=== PATIENT | male | born 1940 | race Two or more races ===

== ENCOUNTER 2024-09-04 13:20 | Outpatient (AMB) | payer OTHER, SELFPAY ==
[2024-09-04 13:23] VITALS: BP 100/62; PULSE 84; O2SAT 99; BMI 23.8
--- NOTE | 2024-09-04 13:23 | MHC.OFFVIS ---
Vital Signs 09/04/24 13:23 Height 5 ft 5 in Weight 143 lb BMI 23.8 BP 100/62 Blood Pressure Location Rt brachial Position Sitting Pulse 84 Pulse Source Doppler Pulse Oximetry (%) 99 Oxygen Delivery Method Room Air Intake Visit Reasons: asthma Financial Project Manager Required: Yes Financial Project Manager Name: Francy Brennan Lamar Allergies Penicillins Allergy (Severe, Verified 09/04/24 13:31) Itchiness HPI HPI asthma: Details: 84-year-old gentleman, nonsmoker, with underlying history of what may be asthma, previously seen by [facility] Pulmonary associates, no followed by drainage inspector, recently taken off likely ?ICS/LABA secondary to ?heart condition. Patient does underlying multiple environmental allergies at worse during colder temperatures. He does have several dogs. Patient denies having recent function or allergy testing. Patient denies having recent cardiac testing. Patient denies underlying family history of pulmonary diseases. Patient has underlying history of exposure to industrial dusts for 3 decades. [facility] Social History (Updated 09/04/24 @ 13:33 by Francy Kate [facility]) Patient Tobacco Use Status: Never used Tobacco Review of Systems Const Denies daytime sleepiness, Denies excessive sweating, Denies fatigue, Denies fever(s), Denies lethargy, Denies malaise, Denies night sweats, Denies snoring and Denies weight loss Eyes Denies blurry vision and Denies itchy eyes ENT Reports nasal congestion, Reports post nasal drip, Denies sinus pain, Denies sinus pressure and Denies other ( Thrush) Card Denies chest pain, Denies pedal edema, Denies dyspnea, Denies orthopnea and Denies paroxysmal nocturnal dyspnea Resp Denies cough, Denies hemoptysis, Denies excessive phlegm production, Denies dyspnea, Denies snoring and Reports wheezing GI Denies abdominal pain and Denies heartburn Musc Denies myalgias, Denies arthralgias and Denies joint swelling Skin/Breast Denies rash Neuro Denies memory loss and Denies seizure-like activity Psych Denies abnormal sleep pattern, Denies anxiety and Denies memory loss Endo Denies excessive sweating, Denies fatigue and Denies heat intolerance Mick/Lymph Denies easy bruising Aller/Immun Denies itchy eyes, Denies seasonal rhinorrhea and Reports wheezing Physical Exam Vital Signs: Last Vital Signs Pulse 84 09/04/24 13:23 BP 100/62 09/04/24 13:23 Pulse Ox 99 09/04/24 13:23 Oxygen Delivery Method Room Air 09/04/24 13:23 BMI result Body Mass Index 23.8 Const General: no acute distress and alert Nutritional Appearance: not obese Orientation/consciousness: Other orientation findings ( oriented) HEENT Head: Yes atraumatic Eyes General: appearance normal, both eyes and all related structures Sclerae: sclerae normal EOM: EOMs intact bilaterally Neck Neck: Yes supple Lymphatic: no lymphadenopathy noted Resp Effort & Inspection: normal respiratory effort and no use of accessory muscles Auscultation: clear to auscultation bilaterally Cardio Rate: regular rate Rhythm: regular rhythm Heart sounds: no gallops, no murmurs and no rubs Skin General skin exam: other ( warm) Extrem General: No clubbing, No cyanosis and No edema Assessment & Plan Assessment & Plan (1) ILD (interstitial lung disease): Code(s): J84.9 - Interstitial pulmonary disease, unspecified Category: Medical Plan: Possible underlying ILD. Will obtain CT chest for further evaluation. (2) Asthma: Code(s): J45.909 - Unspecified asthma, uncomplicated Category: Medical Plan: Likely underlying asthma suboptimally controlled on no inhaled bronchodilators or inhaled corticosteroid therapy. Will start on empiric Breo and obtain full PFT. (3) Dyspnea on exertion: Code(s): R06.09 - Other forms of dyspnea Category: Medical Plan: Likely multifactorial. Will obtain 2D echocardiogram to evaluate possible cardiac component. (4) Environmental allergies: Code(s): Z91.09 - Other allergy status, other than to drugs and biological substances Category: Medical Plan: Will obtain IgE level, CBC with differential, and RAST panel for further evaluation. Orders: Orders PFT pulmonary function test Today J84.9 - Interstitial pulmonary disease, unspecified CT chest wo IV con Today J84.9 - Interstitial pulmonary disease, unspecified CA echo transthoracic complete Today R06.09 - Other forms of dyspnea Resp Allergy Profile Region I Today Z91.09 - Other allergy status, other than to drugs and biological substances Complete Blood Count Auto Diff Today Z91.09 - Other allergy status, other than to drugs and biological substances Medications: New fluticasone furoate-vilanterol 200-25 mcg/dose (Breo Ellipta) 1 inh inhalation DAILY 1 ea 6RF R06.09 - Other forms of dyspnea Coding Level of Care Code New Pt Level 5 (13706) Diagnoses ILD (interstitial lung disease) J84.9 Asthma J45.909 Dyspnea on exertion R06.09 Environmental allergies Z91.09
--- OUTSIDE RECORDS SUMMARY | 2024-09-04 15:53 | XMS_ITS | Encounter Summary ---
Author Organization [employer] Address [address] [place] [address] Care Team Providers Care Biology Manager Name Role Phone Eva Lee Primary Care Provider + Reason for Visit * Reason Onset Date Comments faxed form 08/21/2024 [facility] Encounter Details Date Type Department Care Team (Late st Contact Info) Description 08/21/2024 Telephone Internal Medicine - [place] [address] [facility] [address] [place] [address] Shana Puente MA faxed form ([facility] ) Social History Tobacco Use Types Packs/Day Years Used Date Smoking Tobacco: Never Smokeless Tobacco: Never Alcohol Use Standard Drinks/Week Comments No 0 (1 standard drink = 0.6 oz pur e alcohol) Housing Instability Answer Date Recorde d Are you worried that in the next 2 months you may not have stable housing? No 06/10/2024 Food Access & Nutrition Answer Date Rec orded Do you have access to a vari ety of food including fruits and vegetables? Yes 06/10/2024 Access to Healthcare Answer Date Record ed Within the last 3 months, ho w many times did you visit the emergency department for your medical care? 0 06/10/2024 Health Literacy Answer Date Recorded How often do you need to hav e someone help you when you read instructions, pamphlets, or other written material from your doctor or pharmacy? Sometimes 06/10/2024 Caregiver: How often do you need to have someone help you when you read instructions, pamphlets, or other written material from your doctor or pharmacy? Not on file 06/10/2024 Financial Risk Answer Date Recorded How hard is it for you to pa y for the very basics like food, housing, medical care, and air conditioning / heating? Not very hard 06/10/2024 Transportation Answer Date Recorded Has the lack of transportati on kept you from meetings, work, or from getting things needed for daily living? No Has the lack of transportati on kept you from medical appointments or from getting medications? No 06/10/2024 Social Isolation Answer Date Recorded How often do you feel lonely or isolated from those around you? Sometimes 06/10/2024 Food Risk Answer Date Recorded Within the past 12 months we worried whether our food would run out before we got money to buy more. Never true 06/10/2024 Within the past 12 months th e food we bought just didn't last and we didn't have money to get more. Never true 06/10/2024 Dependent Care Answer Date Recorded Do you need help finding or paying for care for your loved ones. For example, child development specialist or elderly care for an older adult? No 06/10/2024 Education Answer Date Recorded Do you think completing more education or training, like finishing a GED, going to college, or learning a trade, would be helpful for you? No 06/10/2024 Employment and Income Answer Date Recor ded During the last four weeks, have you been actively looking for work? No 06/10/2024 Living Situation Answer Date Recorded What is your living situation? 1 08/11/2023 Sex and Gender Information Value Date Recorded Sex Assigned at Not on file Legal Sex Male 5:07 AM EST Gender Identity Not on file Sexual Orientation Not on file documented as of this encounter Progress Notes * Shana Puente MA - 08/22/2024 4:08 PM EST Faxed [phone] * Shana Puente MA - 08/21/2024 3:59 PM EST [facility], Plan of Care 08/01/24 Placed in providers folder for signature. documented in this encounter Plan of Treatment Upcoming Encounters Date Type Department Care Team (Late st Contact Info) Description 09/10/2024 2:30 PM EDT Office Visit [facility] [address] [place] [address] [place] [address] Tucker Bridges MD [address] [place] [address] [address] [place] [address] 10/28/2024 10:45 AM EDT Office Visit Internal Medicine - [place] [address] [place] [phone] Eva Lee PA [address] [address] documented as of this encounter Visit Diagnoses Not on filedocumented in this encounter Care Teams Biology Manager Relationship Specialty Start Date End Date Eva Lee PA [address] [place] [address] PCP - General Internal Medicine 11/12/19 documented as of this encounter
--- OUTSIDE RECORDS SUMMARY | 2024-09-04 15:53 | XMS_ITS | Encounter Summary ---
Author Organization [facility] Address [address] [place] [address] Care Team Providers Care Light Air Defense Artillery Crewmember Name Role Phone Eva Lee Primary Care Provider + Reason for Referral * Consultation (Routine) - Pending Review Specialty Diagnoses / Procedures Referred By iLsa palomares Referred To Contact Physical Therapy Diagnoses Right ankle pain, unspecified chronicity Eva Lee PA [address] [address] Phone: tel: fax: Referral ID Status Reason Start Date Expiration Date Visits Requested Visits Authorized [id number] Pending Review Specialty Services Required 08/20/2024 08/20/2025 1 1 Reason for Visit * Reason Onset Date Blanca Velasquez - Referral 08/12/2024 Encounter Details Date Type Department Care Team ([facility] Contact Info) Description 08/12/2024 Telephone Internal Medicine - [place] [address] [address] Eva Lee PA [address] [place] [address] Eva - Referral Social History Tobacco Use Types Packs/Day Years [...] for your loved ones. For example, child psychometrist or elderly care for an older adult? [...] as of this encounter Progress Notes * EMMETT Kenyon - 08/20/2024 4:18 PM EST Obtained and reviewed [facility] ER report from 06/22/2024. He was seen there after having a fall 2 days prior on 06/20/2024 with complaints of right ankle pain and found to have fracture distal fibulaas well as concussion because he also hit his head. Looks like he had follow-up x-rays 07/09/2024 andthen last one was 07/24/[address] [place] and revealed unchanged lateral malleoli are fracture. Seems he was treated with a boot and now wants to go to physical therapy which I placed referral he just needs to call upstairs and make the appointment if you could give him the number. Thank you. * Nicolasa Wilson MA - 08/20/2024 4:11 PM EST Looking for a referral to physical therapy. Checked on [facility] and pt had a fracture of the right ankle from a fall on 06/20. Printed ER note, and Xray note placed on your desk for review. * EMMETT Kenyon - 08/12/2024 10:52 AM EST Please clarify message. Are they looking for physical therapy referral? Also it says ankle fractureon the right? I was not aware of this can you please further detail. Thank you. * Nicolasa Wilson MA - 08/12/2024 10:46 AM EST Please advise referral request * Smiley Coates - 08/12/2024 10:00 AM EST Referral Request: What insurance does the patient have today? [employer] medicare adv [id number] Referrals cannot be processed if the insurance is not accurate. If the insurance listed above in red is NO BILLING INFORMATION FOUND FOR THIS ENCOUNTER The patients correct insurance must be obtained and registered in [facility] or their referral can not be processed. Is this a retro request? yes. If yes for what date of service do you need the retro referral? 07/31/34 Who is calling to request this referral? Faxed request If the caller is not the patient, what is their name? Specialist's office Ask the patient WHO referred them to this specialty: Patient self referred FIRST and LAST NAME of SPECIALIST PATIENT is seeing: [facility] #[id number] What specialty is this? Physical Therapy DIAGNOSIS Patient is being seen for (Not a body part or a procedure): right ankle fracture Have you seen this SPECIALIST for this PROBLEM/DX before? If YES, when? No Have you checked REVIEW or the APPT DESK to see if this referral has already been done or has visits left? yes Is this visit: Initial Visit, 12 visits Address of Specialist: [address] [facility] [address] Phone # of Specialist: [phone] Fax #: (if applicable): [phone] Does patient have an appointment scheduled?: yes Date of appointment- (including a retro-request): 07/31/24 Is this appointment related to: Not MVA, worker compensation, or surgery related documented in this encounter Plan of Treatment Upcoming Encounters Date Type Department Care Team (Late st Contact Info) Description 09/10/2024 2:30 PM EDT Office Visit [facility] [address] [facility] [address] [place] [address] Tucker Bridges MD [address] [place] [address] [address] [place] [address] 10/28/2024 10:45 AM EDT Office Visit Internal Medicine - [place] [address] [place] [address] Eva Lee PA [address] [facility] [address] [place] [address] Scheduled Referrals Name Type Priority Associated Diagnoses Order Schedule Ambulatory referral to Physical Therapy and Athletic Training Outpatient Referral Routine Right ankle pain, unspecified chronicity 1 Occurrences starting 08/20/2024 until 08/20/2025 documented as of this encounter Visit Diagnoses Diagnosis Right ankle pain, unspecified chronicity- Primary documented in this encounter Care Teams [employer] Crewmember Relationship Specialty Start Date End Date Eva Lee PA [address] [facility] [address] [place] [address] PCP - General Internal Medicine 11/12/19 documented as of this encounter
--- OUTSIDE RECORDS SUMMARY | 2024-09-04 15:53 | XMS_ITS | Encounter Summary ---
Author Organization [facility] Address [address] [place] [address] Care Team Providers Care Fast Food Worker Name Role Phone Eva Lee Primary Care Provider + Encounter Details Date Type Department Care Team (Late st Contact Info) Description 09/04/2024 Telephone Internal Medicine - [place] [address] [facility] [address] [place] [phone] Eva Lee PA [address] [facility] [address] [place] [address] Social History Tobacco Use Types Packs/Day Years [...] care for your loved ones. For example, children's counselor or elderly care for an older adult? [...] as of this encounter Progress Notes * Myesha Britt - 09/04/2024 10:05 AM EST [facility] is calling to check if we received a faxed insurance referral to our office that was faxed on 08/30? Seeing Tucker Aviles npi# [id number] On 09/10/24 at 2:30pm [address], [place] [address], [place] [address] documented in this encounter Plan of Treatment Upcoming Encounters Date Type Department Care Team (Late st Contact Info) Description 09/10/2024 2:30 PM EDT Office Visit [facility] [address] [place] [address] [place] [address] Stefan-Tucker Alvarez MD [address] [place] [address] [address] [place] [address] 10/28/2024 10:45 AM EDT Office Visit Internal Medicine - [place] [address] [place] [address] Eva Lee PA [address] [place] [address] documented as of this encounter Visit Diagnoses Not on filedocumented in this encounter Care Teams Fast Food Worker Relationship Specialty Start Date End Date Eva Lee PA [address] [place] [address] PCP - General Internal Medicine 11/12/19 documented as of this encounter
--- OUTSIDE RECORDS SUMMARY | 2024-09-04 15:53 | XMS_ITS | Encounter Summary ---
Author Organization [facility] Address [address] [place] [address] Care Team Providers Care Air Crew Member Name Role Phone Eva Lee Primary Care Provider + Reason for Visit * Reason Onset Date Comments Eva: April 08/02/2024 Encounter Details Date Type Department Care Team ([facility] st Contact Info) Description 08/02/2024 Telephone Internal Medicine - [place] [address] [facility] [address] [place] [phone] Eva Lee PA [address] [facility] [address] [place] [address] Eva: Echo Social History Tobacco Use Types Packs/Day Years [...] care for your loved ones. For example, early childhood or elderly care for an older adult? [...] as of this encounter Progress Notes * Kaila Maldonado MA - 08/06/2024 8:57 AM EST faxed * EMMETT Kenyon - 08/05/2024 4:03 PM EST Echo was ordered by his racing mechanic and done 03/11/2024. Please fax results to clinical nursing assistant they are in the chart under cardiovascular. Thank you. * Kim Moon - 08/02/2024 1:33 PM EST [facility] pulmonology called and requested the results of the echocardiogram that was ordered by the patients PCP. documented in this encounter Plan of Treatment Upcoming Encounters Date Type Department Care Team (Late st Contact Info) Description 09/10/2024 2:30 PM EDT Office Visit [facility] Cardiology [facility] [address] [place] [address] [address] [place] [address] Tucker Bridges MD [address] [place] [address] [address] [place] [address] 10/28/2024 10:45 AM EDT Office Visit Internal Medicine - [place] [address] [place] [address] Eva Lee PA [address] [place] [address] documented as of this encounter Visit Diagnoses Not on filedocumented in this encounter Care Teams Air Crew Member Relationship Specialty Start Date End Date Eva Lee PA [address] [address] PCP - General Internal Medicine 11/12/19 documented as of this encounter
--- OUTSIDE RECORDS SUMMARY | 2024-09-04 15:53 | XMS_ITS | Clinical Summary ---
Author Organization [address] [place] [address] [place] [phone] Phone Care Team Providers Care It Infrastructure Project Manager Name Role Phone Eva Lee Primary Care Provider + Allergies Active Allergy Reactions Criticality Noted Date Comments Penicillins Swelling 06/11/2024 Medications sacubitriL-valsa rtan (Entresto) 24-26 mg per tablet TAKE 1 TABLET BY MOUTH TWICE DAILY 180 tablet 1 08/05/2024 Active Encounters Date Type Department Care Team Description 09/04/[address] [facility] [address] [address] Eva Lee PA 08/21/[address] [phone] Shana Puente [place] faxed form ([facility] ) 08/12/2024 Telephone Internal [address] [phone] Eva Lee PA Melonie - Referral 08/02/2024 Telephone Internal Medicine [facility] [address] [phone] Eva Lee PA Melonie: Echo 06/11/2024 10:40 AM EST - 06/11/2024 11:59 PM EST Hospital Encounter [facility] XRAY - [place] [address] [place] [phone] Acute cough Discharge Disposition: Home or Self Care 06/11/2024 10:00 AM EST Office Visit Walk-In Clinic [facility] [address] [place] [address] Zion Garcia PA Pneumonia of both lower lobes due to infectious organism (Primary Dx) from Last 3 Months Medical History Medical History Date Comments Allergic rhinitis 01/11/2018 DX:Allergic rh initis Asthma 09/06/2017 DX:Asthma Atrial fibrillation (CMS/HCC) 03/28/2018 DX :Atrial fibrillation (HCC); COMMENT: On anticoagulation BPH (benign prostatic hyperplasia) 01/11/2018 DX:BPH (benign prostatic hyperplasia) Diverticulosis 12/30/2016 DX:Diverticulosi s Hyperlipidemia 01/11/2018 DX:Hyperlipidemi a Tubular adenoma of colon 01/11/2018 DX:Tubu lar adenoma of colon Vitamin D deficiency 05/18/2015 DX:Vitamin D deficiency Family History Relation Name Status Comments Father Mother Social History Tobacco Use Types Packs/Day Years [...] for your loved ones. For example, child care leader or elderly care for an older adult? [...] on file Sexual Orientation Not on file Obstetrics History Last Filed Vital Signs Vital Sign Reading Time Taken Comments Blood Pressure 106/63 06/11/2024 10:11 AM EST Pulse 78 06/11/2024 10:11 AM EST Temperature 36.3 ??C (97.3 ??F) 06/11/2024 10:[address] Respiratory Rate - - Oxygen Saturation 98% 06/11/2024 10:11 AM EST Inhaled Oxygen Concentration - - Weight 63.8 kg (140 lb 9.6 oz) 05/01/2024 11:19 AM EDT Height 165.1 cm (5' 5 ) 05/01/2024 11:19 AM EDT Body Mass Index 23.4 05/01/2024 11:19 AM EDT Plan of Treatment Upcoming Encounters Date Type Department Care Team (Late st Contact Info) Description 09/10/2024 2:30 PM EDT Office Visit [facility] Cardiology [facility] [address] [place] [address] [address] [place] [address] Tucker Bridges MD [address] [place] [address] Dr Emmanuel [address] [place] [address] 10/28/2024 10:45 AM EDT Office Visit Internal Medicine - [place] [address] [place] [address] Eva Lee PA [address] Emmanuel [address] [place] [address] Health Maintenance Due Date Last Done Comments DTaP,Tdap,and Td Vaccines (1 - Tdap) 1958 Zoster Vaccines (1 of 2) 1989 RSV Immunization Patients 60 + Years Old (1 - 1-dose 75+ series) 2014 Pneumococcal Vaccine: 50+ Ye ars (2 of 2 - PPSV23) 06/01/2016 04/06/2016 Cholesterol Screening (Lipid Panel) 06/05/2022 Depression Screening 06/05/2022 Falls Risk Assessment 06/05/2022 Medicare Annual Wellness Visit 06/05/2022 COVID-19 Vaccine (1 - 2023-2 5 season) 2024 Influenza Vaccine (#1) 2024 Hypertension/CHF/CAD Annual BMP Blood Test 11/27/2024 11/28/2023 Social Influencers of Health Screening 06/10/2025 06/10/2024 HIB Vaccines Aged Out No longer eligi ble based on patient's age to complete this topic HPV Vaccines Aged Out No longer eligi ble based on patient's age to complete this topic Hepatitis A Vaccines Aged Out No long er eligible based on patient's age to complete this topic Hepatitis B Vaccines Aged Out No long er eligible based on patient's age to complete this topic IPV Vaccines Aged Out No longer eligi ble based on patient's age to complete this topic MMR Vaccines Aged Out No longer eligi ble based on patient's age to complete this topic Meningococcal ACWY Vaccine Aged Out N o longer eligible based on patient's age to complete this topic Meningococcal B Vacine Aged Out No lo nger eligible based on patient's age to complete this topic RSV Immunization Patients Un puja 20 months Aged Out No longer eligible b ased on patient's age to complete this topic Varicella Vaccines Aged Out No longer eligible based on patient's age to complete this topic Procedures Procedure Name Priority Date/Time Associated Diagnosis Comments POC RAPID [id number], MOLECULAR Routine 06/11/2024 11:18 AM EST Pneumonia of both lower lobes due to infectious organism XR CHEST 2 VIEWS STAT 06/11/2024 10:4 9 AM EST Acute cough from Last 3 Months Results * Poc Rapid [id number], MOLECULAR (06/11/2024 11:18 AM EST) COVID-19/SARS- COV-2 Rapid POC Negative Negative Swab Nasopharyngeal structure / Unknown 06/11/2024 11:18 AM EST [facility] POINT OF CARE TEST ENTER/E DIT ORDERABLES Final Result * XR Chest 2 Views (06/11/2024 10:49 AM EST) Anatomical Region Laterality Modality Body Radiographic Eugenia ging 06/11/2024 11:5 3 AM EST Impressions 06/11/2024 11:58 AM EST Probable small bilateral lower lung infiltrates. POS - [id number] -------- FINAL REPORT -------- Dictated By: Dottie Zavala Dictated Date: 06/11/2024 11:53 ET Assigned Physician: Dottie Zavala Reviewed and Electronically Signed By: Dottie Zavala Signed Date: 06/11/2024 11:58 ET Workstation ID: [id number] Transcribed By: Self Edit Transcribed Date: 06/11/2024 11:53 ET Narrative 06/11/2024 11:58 AM EST EXAM: Chest x-ray HISTORY: ??Productive cough for one week. COMPARISON: 03/29/2023 FINDINGS: PA and lateral views of the chest were performed. ?? Small patchy opacities in the medial lower lungs. ??Stable minimal linear scarring in the lateral left lower lung. ??No pleural effusions or evidence of pulmonary edema. Stable mild cardiomegaly. ??Mediastinal contours are unchanged. ??Multilevel degenerative changes in the spine. Procedure Note Dottie Zavala MD - 06/11/2024 EXAM: Chest x-ray HISTORY: Productive cough for one week. COMPARISON: 03/29/2023 FINDINGS: PA and lateral views of the chest were performed. Small patchy opacities in the medial lower lungs. Stable minimal linearscarring in the lateral left lower lung. No pleural effusions or evidenceof pulmonary edema. Stable mild cardiomegaly. Mediastinal contours areunchanged. Multilevel degenerative changes in the spine. IMPRESSION: Probable small bilateral lower lung infiltrates. POS - [id number] -------- FINAL REPORT -------- Dictated By: Dottie Zavala Dictated Date: 06/11/2024 11:53 ET Assigned Physician: Dottie Zavala Reviewed and Electronically Signed By: Dottie Zavala Signed Date: 06/11/2024 11:58 ET Workstation ID: [id number] Transcribed By: Self Edit Transcribed Date: 06/11/2024 11:53 ET us [facility] IMG XR PROCEDURES Final Re sult from Last 3 Months Insurance [employer] Advance Directives Documents on File Type Date Recorded Patient Sales Research Analyst Expl anation DNR (Do Not Resuscitate) 05/07/2024 2:54 PM [facility] Care Teams It Infrastructure Project Manager Relationship Specialty Start Date End Date Eva Lee PA [address] [place] [address] PCP - General Internal Medicine 11/12/19
== END 2024-09-04 14:04 | disposition home or self-care (01) ==
PROVIDERS: PCP Physician Assistant; Visit Provider Internal Medicine Pulmonary Disease
DX: J45.909 Unspecified asthma, uncomplicated (principal); J84.9 Interstitial pulmonary disease, unspecified
CPT/HCPCS: 94060; 94727; 94729; 99204

== ENCOUNTER 2024-09-04 14:09 | Outpatient (REF) | payer OTHER, SELFPAY ==
--- NOTE | 2024-09-04 14:44 | PFT_ITS ---
Indication: Asthma Spirometry [FEV1 to FVC 65%; FEV1 1.49 L; FVC 3.3 L. bronchodilators were not given.] Lung Volumes [The patient was able to perform the maneuvers after multiple attempts] Diffusion Capacity [DLCO 75% predicted] Comparisons [None] Interpretation [There is an obstructive ventilatory defect consistent with a moderate obstruction. However, since the patient did have received bronchodilators we do not know if this is a reversible obstruction. The patient was unable to complete lung volumes. There is a mild diffusion impairment. Clinical correlation warranted.] MTDD
[2024-09-04 14:49] LABS: MANUAL DIFF FLAG NO
[2024-09-04 15:58] LABS: Basophils Percent Auto 0.8 % (0-2); Eosinophils Absolute Auto 0.1 X10*3/uL (0.0-0.4); Eosinophils Percent Auto 1.5 % (0-4); Hematocrit 42.7 % (42.0-52.0); Hemoglobin 14.6 g/dl (14.0-18.0); Imm Gran Abs Auto 0.01 X10*3/uL (0.00-0.03); Imm Gran Pct Auto 0.2 % (0.0-0.4); Lymphocytes Absolute Auto 1.3 X10*3/uL (1.2-4.9); Lymphocytes Percent Auto 27.5 % (20-40); Mean Corpuscular HGB Conc 34.2 g/dl (31.0-36.0); Mean Corpuscular Volume 99.5 fL (80.0-98.0); Mean Platelet Volume 10.6 fL (9.4-12.4); Monocytes Absolute Auto 0.5 X10*3/uL (0.1-1.2); Monocytes Percent Auto 10.5 % (2-11); Neutrophils Absolute Auto 2.8 x10*3/uL (2.0-8.3); Neutrophils Percent Auto 59.5 % (45-73); Platelet Count 163 X10*3/uL (160-400); Red Blood Count 4.29 X10*6/uL (4.60-5.80); White Blood Count 4.8 X10*3/uL (4.8-10.8)
--- OUTSIDE RECORDS SUMMARY | 2024-09-04 17:08 | XMS_ITS | Encounter Summary ---
Author Organization [employer] Address [address] [place] [address] Care Team Providers Care Educational Institution President Name Role Phone Eva Lee Primary Care Provider + Encounter Details Date Type Department Care Team (Late st Contact Info) Description 09/04/2024 Telephone Internal Medicine - [place] 175 [facility] [address] [place] [phone] Eva Lee PA 175 [facility] [address] [place] [address] Social History Tobacco Use Types Packs/Day Years [...] for your loved ones. For example, children's court magistrate or elderly care for an older adult? [...] faxed on 08/30? Seeing Tucker Aviles npi# [id number] On 09/10/24 at 2:30pm [address], [place] [address], [place] [address] documented in this encounter Plan of Treatment Upcoming Encounters Date Type Department Care Team (Late st Contact Info) Description 09/10/2024 2:30 PM EDT Office Visit [facility] [address] [place] [address] [place] [address] Stefan-Tucker Alvarez MD [address] [place] [address] Dr [address] [place] [address] 10/28/2024 10:45 AM EDT Office Visit Internal Medicine - [place] [address] [place] [address] Eva Lee PA [address] [place] [address] documented as of this encounter Visit Diagnoses Not on filedocumented in this encounter Care Teams Educational Institution President Relationship Specialty Start Date End Date Eva Lee PA [address] [place] [address] PCP - General Internal Medicine 11/12/19 documented as of this encounter
--- OUTSIDE RECORDS SUMMARY | 2024-09-04 17:08 | XMS_ITS | Encounter Summary ---
Author Organization [employer] Address [address] [place] [address] Care Team Providers Care Experimental Preflight Mechanic Name Role Phone Eva Lee Primary Care Provider + Reason for Visit * Reason Onset Date Comments faxed form 08/21/2024 [facility] Encounter Details Date Type Department Care Team (Late st Contact Info) Description 08/21/2024 Telephone Internal Medicine - [place] 175 [facility] [address] [place] [address] Shana Puente [place] faxed form [...] for your loved ones. For example, child support investigator or elderly care for an older adult? [...] [place] - 08/22/2024 4:08 PM EST Faxed [phone] * Shana Puente MA - 08/21/2024 3:59 PM EST [facility], Plan of Care 08/01/24 Placed in providers folder for signature. documented in this encounter Plan of Treatment Upcoming Encounters Date Type Department Care Team (Late st Contact Info) Description 09/10/2024 2:30 PM EDT Office Visit [facility] - [facility] [address] [place] [address] [place] [address] Tucker Bridges MD [address] [place] [address] Dr Benitez [address] [place] [address] 10/28/2024 10:45 AM EDT Office Visit Internal Medicine - [place] [address] [place] [phone] Eva Lee PA [address] [address] documented as of this encounter Visit Diagnoses Not on filedocumented in this encounter Care Teams Experimental Preflight Mechanic Relationship Specialty Start Date End Date Eva Lee PA [address] [place] [address] PCP - General Internal Medicine 11/12/19 documented as of this encounter
--- OUTSIDE RECORDS SUMMARY | 2024-09-04 17:08 | XMS_ITS | Clinical Summary ---
Author Organization [address] [place] [address] [place] [phone] Phone Care Team Providers Care Helicopter Repairer Name Role Phone Eva Lee Primary Care Provider + Allergies Active Allergy Reactions Criticality Noted Date Comments Penicillins Swelling 06/11/2024 Medications sacubitriL-valsa rtan (Entresto) 24-26 mg per tablet TAKE 1 TABLET BY MOUTH TWICE DAILY 180 tablet 1 08/05/2024 Active Encounters Date Type Department Care Team Description 09/04/2024 Telephone Internal [facility] [address] [address] Eva Lee PA 08/21/[address] [phone] Shana Puente [place] faxed form ([facility] ) 08/12/2024 Telephone Internal [address] [phone] Eva Lee PA Melonie - Referral 08/02/2024 Telephone Internal Medicine [facility] [address] [phone] Eva Lee PA Melonie: Echo 06/11/2024 10:40 AM EST - 06/11/2024 11:59 PM EST Hospital Encounter Walk-In Clinic XRAY - [place] [address] [place] [phone] Acute cough Discharge Disposition: Home or Self Care 06/11/2024 10:00 AM EST Office Visit Walk-In Clinic [facility] [address] [place] [address] Zion Garcia PA Pneumonia of [...] your loved ones. For example, child development associate teacher or elderly care for an older adult? [...] Description 09/10/2024 2:30 PM EDT Office Visit [facility] Cardiology [facility] [address] [place] [address] Dr [address] [place] [address] Tucker Bridges MD [address] [place] [address] Dr Emmanuel [address] [place] [address] 10/28/2024 10:45 AM EDT Office Visit Internal Medicine - [place] [address] [place] [address] Eva Lee PA [address] [place] [address] Health Maintenance Due Date Last Done Comments [...] Priority Date/Time Associated Diagnosis Comments POC RAPID [id number], MOLECULAR Routine 06/11/2024 11:18 AM EST Pneumonia of both lower lobes due to infectious organism XR CHEST 2 VIEWS STAT 06/11/2024 10:4 9 AM EST Acute cough from Last 3 Months Results * Poc Rapid [id number], MOLECULAR (06/11/2024 11:18 AM EST) COVID-19/SARS- COV-2 [...] small bilateral lower lung infiltrates. POS - [id number] -------- FINAL REPORT -------- Dictated By: Dottie Zavala Dictated Date: 06/11/2024 11:53 ET Assigned Physician: Dottie Zavala Reviewed and Electronically Signed By: Dottie Zavala Signed Date: 06/11/2024 11:58 ET Workstation ID: [id number] Transcribed By: Self Edit Transcribed Date: 06/11/2024 [...] small bilateral lower lung infiltrates. POS - [id number] -------- FINAL REPORT -------- Dictated By: Dottie Zavala Dictated Date: 06/11/2024 11:53 ET Assigned Physician: Dottie Zavala Reviewed and Electronically Signed By: Dottie Zavala Signed Date: 06/11/2024 11:58 ET Workstation ID: [id number] Transcribed By: Self Edit Transcribed Date: 06/11/2024 11:53 ET us [facility] IMG XR PROCEDURES Final Re sult from Last 3 Months Insurance [employer] Advance Directives Documents on File Type Date Recorded Patient Non Destructive Tester Expl anation DNR (Do Not Resuscitate) 05/07/2024 2:54 PM [facility] Care Teams Helicopter Repairer Relationship Specialty Start Date End Date Eva Lee PA [address] [place] [address] PCP - General Internal Medicine 11/12/19
--- OUTSIDE RECORDS SUMMARY | 2024-09-04 17:08 | XMS_ITS | Encounter Summary ---
Author Organization [employer] Address [address] [place] [address] Care Team Providers Care Commercial Loan Collection Officer Name Role Phone Eva Lee Primary Care Provider + Reason for Visit * Reason Onset Date Comments Eva: April 08/02/2024 Encounter Details Date Type Department Care Team ([facility] st Contact Info) Description 08/02/2024 Telephone Internal Medicine - [place] 175 [facility] [address] [place] [phone] Eva Lee PA 175 [facility] [address] [place] [address] Eva: Echo Social History Tobacco Use Types [...] care for your loved ones. For example, teacher early childhood development or elderly care for an older adult? [...] PM EST Echo was ordered by his cnc machinist and done 03/11/2024. Please fax results to display maker they are in the chart under cardiovascular. Thank you. * Kim Moon - 08/02/2024 1:33 PM EST [facility] pulmonology called and requested the results of the echocardiogram that was ordered by the patients PCP. documented in this encounter Plan of Treatment Upcoming Encounters Date Type Department Care Team (Late st Contact Info) Description 09/10/2024 2:30 PM EDT Office Visit [facility] Cardiology [facility] [address] [place] [address] Dr Edgar [address] [place] [address] Tucker Bridges MD [address] [place] [address] Dr Benitez [address] [place] [address] 10/28/2024 10:45 AM EDT Office Visit Internal Medicine - [place] [address] [place] [address] Eva Lee PA [address] [place] [address] documented as of this encounter Visit Diagnoses Not on filedocumented in this encounter Care Teams Commercial Loan Collection Officer Relationship Specialty Start Date End Date Eva Lee PA [address] [address] PCP - General Internal Medicine 11/12/19 documented as of this encounter
--- OUTSIDE RECORDS SUMMARY | 2024-09-04 17:08 | XMS_ITS | Encounter Summary ---
Author Organization [facility] Address [address] [place] [address] Care Team Providers Care Plasma Processing Centrifuge Operator Name Role Phone Eva Lee Primary Care Provider + Reason for Referral * Consultation (Routine) - Pending Review Specialty Diagnoses / Procedures Referred By Lisa palomares Referred To Contact Physical Therapy Diagnoses Right ankle pain, unspecified chronicity Eva Lee PA [address] [address] Phone: tel: fax: Referral ID Status Reason Start Date Expiration Date Visits Requested Visits Authorized [id number] Pending Review Specialty Services Required 08/20/2024 08/20/2025 1 1 Reason for Visit * Reason Onset Date Blanca Velasquez - Referral 08/12/2024 Encounter Details Date Type Department Care Team ([facility] Contact Info) Description 08/12/2024 Telephone Internal Medicine - [place] [address] [address] Eva Lee PA [address] [place] [address] Eva - Referral Social History Tobacco Use [...] for your loved ones. For example, child advocate or elderly care for an older adult? [...] 08/20/2024 4:18 PM EST Obtained and reviewed [facility] ER report from 06/22/2024. He was [...] the patient have today? [employer] medic[employer] adv [id number] Referrals cannot be processed if the insurance is not accurate. If the insurance listed above in red is NO BILLING INFORMATION FOUND FOR THIS ENCOUNTER The patients correct insurance must be obtained and registered in [facility] or their referral can not be processed. [...] NAME of SPECIALIST PATIENT is seeing: [facility] #[id number] What specialty is this? Physical Therapy DIAGNOSIS [...] visits Address of Specialist: [address] [facility] [address] Phone # of Specialist: [phone] Fax #: (if applicable): [phone] Does patient have an appointment scheduled?: yes Date of appointment- (including a retro-request): 07/31/24 Is this appointment related to: Not MVA, worker compensation, or surgery related documented in this encounter Plan of Treatment Upcoming Encounters Date Type Department Care Team (Late st Contact Info) Description 09/10/2024 2:30 PM EDT Office Visit [facility] [address] [place] [address] Tucker Bridges MD [address] [place] [address] Dr [address] [place] [address] 10/28/2024 10:45 AM EDT Office Visit Internal Medicine - [place] [address] [place] [address] Eva Lee PA [facility] [address] [place] [address] Scheduled Referrals Name Type Priority Associated Diagnoses Order Schedule Ambulatory referral to Physical Therapy and Athletic Training Outpatient Referral Routine Right ankle pain, unspecified chronicity 1 Occurrences starting 08/20/2024 until 08/20/2025 documented as of this encounter Visit Diagnoses Diagnosis Right ankle pain, unspecified chronicity- Primary documented in this encounter Care Teams Plasma Processing Centrifuge Operator Relationship Specialty Start Date End Date Eva Lee PA [address] [facility] [address] [place] [address] PCP - General Internal Medicine 11/12/19 documented as of this encounter
[2024-09-06 04:54] LABS: Class Alternaria alternata 0; Class Aspergillus fumigatus 0; Class Bermuda Grass 0; Class Birch 0; Class Cat Dander 0; Class Cladosporium herbarum 0; Class Cockroach 0; Class Common Ragweed 0; Class Cottonwood 0; Class Derm. pterony 0; Class Dermatophagoides farinae 0; Class Dog Dander 0; Class Elm 0; Class Maple Box Elder 0; Class Mountain Cedar 0; Class Mouse Urine Protein 0; Class Mugwort 0; Class Oak 0; Class Penicillium crysogenum 0; Class Rough Pigweed 0; Class Sheep Sorrel 0; Class Sycamore 0; Class Timothy Grass 0; Class Walnut Tree 0; Class White Ash 0; Class White Mulberry 0; D001 IgE D pteronyssinus <0.10 kU/L; D002 - IgE D farinae <0.10 kU/L; E001 - IgE Cat Dander <0.10 kU/L; E005 - IgE Dog Dander <0.10 kU/L; E072-IgE Mouse Urine <0.10 kU/L; G002 IgE Bermuda Grass <0.10 kU/L; G006 - IgE Timothy Grass <0.10 kU/L; I006-IgE Cockroach, German <0.10 kU/L; Immunoglobulin E 123 kU/L (<OR=114); M001 IgE Penicillium chrysogen <0.10 kU/L; M002 - IgE Cladosporium herbar <0.10 kU/L; M003 - IgE Aspergillus fumigat <0.10 kU/L; M006 - IgE Alternaria alternat <0.10 kU/L; T001 IgE Maple/Box Elder <0.10 kU/L; T003 IgE Common Silver Birch <0.10 kU/L; T006 - IgE Cedar, Mountain <0.10 kU/L; T007 - IgE Oak, White <0.10 kU/L; T008 IgE Elm, American <0.10 kU/L; T010 - IgE Walnut <0.10 kU/L; T011 - IgE Maple Leaf Sycamore <0.10 kU/L; T014 - IgE Cottonwood <0.10 kU/L; T015 - IgE Ash, White <0.10 kU/L; T070 - IgE White Mulberry <0.10 kU/L; W001 - IgE Ragweed, Short <0.10 kU/L; W006 - IgE Mugwort <0.10 kU/L; W014 IgE Pigweed, Common <0.10 kU/L; W018 IgE Sheep Sorrel <0.10 kU/L
== END 2024-09-04 14:10 | disposition home or self-care (01) ==
LOC: HO.RESP 14:09
PROVIDERS: PCP Physician Assistant; Visit Provider Internal Medicine Pulmonary Disease
DX: J84.9 Interstitial pulmonary disease, unspecified (principal); Z91.09 Other allergy status, other than to drugs and biological substances
CPT/HCPCS: 36415; 82785; 85025; 86003; 94010; 94729

== ENCOUNTER 2024-10-09 10:47 | Outpatient (AMB) | payer OTHER, SELFPAY ==
--- NOTE | 2024-10-09 10:50 | A.OFFVIS_ITS ---
Vital Signs 10/09/24 10:54 Height 5 ft 5 in Weight 145 lb BMI 24.1 BP 98/60 Blood Pressure Location Rt brachial Position Sitting Pulse 85 Pulse Source Doppler Pulse Oximetry (%) 99 Oxygen Delivery Method Room Air Intake Visit Reasons: Asthma Allergies Penicillins Allergy (Severe, Verified 10/09/24 11:00) Itchiness HPI HPI Asthma: Details: 84-year-old gentleman, nonsmoker, with underlying history of what may be asthma, previously seen by [facility] associates, no followed by queen producer, recently taken off likely ?ICS/LABA secondary to ?heart condition. Patient does underlying multiple environmental allergies at worse during colder temperatures. He does have several dogs. Patient denies having recent function or allergy testing. Patient denies having recent cardiac testing. Patient denies underlying family history of pulmonary diseases. Patient has underlying history of exposure to industrial dusts for 3 decades. After the last office visit patient has completed his laboratory studies that did not show significant allergic component to his symptoms. He attempted pulmonary function test, however was not able to follows directions. His CT chest and 2D echocardiogram are pending. Patient was unable to receive his Breo yet. He also complains of postnasal drip today. [facility] Social History (Updated 09/04/24 @ 13:33 by Francy Kate Yovany) Patient Tobacco Use Status: Never used Tobacco Review of Systems Const Denies daytime sleepiness, Denies excessive sweating, Denies fatigue, Denies fever(s), Denies lethargy, Denies malaise, Denies night sweats, Denies snoring and Denies weight loss Eyes Denies blurry vision and Denies itchy eyes ENT Denies nasal congestion, Reports post nasal drip, Denies sinus pain, Denies sinus pressure and Denies other ( Thrush) Card Denies chest pain, Denies pedal edema, Denies dyspnea, Reports dyspnea on exertion, Denies orthopnea and Denies paroxysmal nocturnal dyspnea Resp Denies cough, Denies hemoptysis, Denies excessive phlegm production, Denies dyspnea, Reports dyspnea on exertion, Denies snoring and Denies wheezing GI Denies abdominal pain and Denies heartburn Musc Denies myalgias, Denies arthralgias and Denies joint swelling Skin/Breast Denies rash Neuro Denies memory loss and Denies seizure-like activity Psych Denies abnormal sleep pattern, Denies anxiety and Denies memory loss Endo Denies excessive sweating, Denies fatigue and Denies heat intolerance Mick/Lymph Denies easy bruising Aller/Immun Denies itchy eyes, Denies seasonal rhinorrhea and Denies wheezing Physical Exam Vital Signs: Last Vital Signs Pulse 85 10/09/24 10:54 BP 98/60 10/09/24 10:54 Pulse Ox 99 10/09/24 10:54 Oxygen Delivery Method Room Air 10/09/24 10:54 BMI result Body Mass Index 24.1 Const General: no acute distress and alert Nutritional Appearance: not obese Orientation/consciousness: Other orientation findings ( oriented) HEENT Head: Yes atraumatic Eyes General: appearance normal, both eyes and all related structures Sclerae: sclerae normal EOM: EOMs intact bilaterally Neck Neck: Yes supple Lymphatic: no lymphadenopathy noted Resp Effort & Inspection: normal respiratory effort and no use of accessory muscles Auscultation: clear to auscultation bilaterally Cardio Rate: regular rate Rhythm: regular rhythm Heart sounds: no gallops, no murmurs and no rubs Skin General skin exam: other ( warm) Extrem General: No clubbing, No cyanosis and No edema Assessment & Plan Assessment & Plan (1) ILD (interstitial lung disease): Code(s): J84.9 - Interstitial pulmonary disease, unspecified Category: Medical Plan: Likely underlying ILD. CT chest is pending. (2) Dyspnea on exertion: Code(s): R06.09 - Other forms of dyspnea Category: Medical Plan: Appears to be multifactorial with likely contribution from underlying pulmonary and cardiac etiologies. Patient was not able to complete pulmonary function te st. His 2D echocardiogram is pending. (3) Asthma: Code(s): J45.909 - Unspecified asthma, uncomplicated Category: Medical Plan: Suboptimally controlled as patient was not able to receive his Breo. Breo reordered. Will add nasal ipratropium for allergic rhinitis. Medications: New ipratropium bromide administer into each nostril 2 sprays intranasal TID-QID PRN 15 mL 0RF postnasal drip Coding Level of Care Code Est Pt Level 4 (33939) Complex EM visit Add On G2211 Diagnoses ILD (interstitial lung disease) J84.9 Dyspnea on exertion R06.09 Asthma J45.909
[2024-10-09 10:54] VITALS: BP 98/60; PULSE 85; O2SAT 99; BMI 24.1
--- OUTSIDE RECORDS SUMMARY | 2024-10-09 12:31 | XMS_ITS | Clinical Summary ---
Author Organization [address] [place] [address] [place] [phone] Phone Care Team Providers Care Loom Doffer Name Role Phone Eva Lee Primary Care Provider + Allergies Active Allergy Reactions Criticality Noted Date Comments Penicillins Swelling 06/11/2024 Medications sacubitriL-chuckie sartan (Entresto) 24-26 mg per tablet TAKE 1 TABLET BY MOUTH TWICE DAILY 180 tablet 1 5 Active Eliquis 5 mg tablet Take 1 tablet (5 mg total) by mouth 2 (two) times a day. 5 Active fluticasone propionate (FLONASE) 50 mcg/actuation nasal spray Administer 1 spray into each nostril if needed for rhinitis. Shake gently. Before first use, prime pump. After use, clean tip and replace cap. Active cetirizine (ZyrTEC) 10 mg tablet Take 1 tablet (10 mg total) by mouth 1 (one) time each day. Active Breo Ellipta 200-25 mcg/dose inhaler 09/11/19 25 Discontinu ed(Patient Discharge) Hospital, Clinic, or Other Facility Administered Medication Ordered Dose Route Frequency Start Date End Date Status TC-99M tetrofosmin P radio-isotope injection 9.6 millicurie 9.6 millicurie IV Once in imaging 09/23/2024 09/23/2024 Ended regadenoson (LEXISCAN) injection 0.4 mg 0.4 mg IV Once in imaging 09/23/2024 09/23/2024 End ed TC-99M tetrofosmin P radio-isotope injection 29.9 millicurie 29.9 millicurie IV Once in imaging 09/23/2024 09/23/2024 Ende d aminophylline injection 50 mg 50 mg IV Once in imaging 09/23/2024 09/23/2024 Ende d Active Problems Problem Noted Date Diagnosed Date Chronic HFrEF (heart failure with reduced ejection fraction) 09/10/2024 Assessment & Plan (10/01/2024 1:37 PM EDT): The patient has a history of a moderate cardiomyopathy. Echocardiogram from March 2024 showed an LVEF of 35 to 40%. Overall, no significant changes in the LVEF on this echocardiogram when compared to the prior study from 2022. The patient is only on Entresto. During today's visit, he had an extensive conversation with the patient and his daughter regarding his underlying cardiomyopathy. I recommended further testing. They are in agreement. Will proceed with a nuclear stress test to rule out any underlying ischemic heart disease as a cause of his cardiomyopathy. Depending on the results, then we will decide if we need to proceed with further testing with a left heart cath or cardiac CT scan. On the other hand, if the nuclear stress test today confirms the presence of a reduced EF that would likely start the patient on additional GDMT with beta-jesika, SGLT2 inhibitor, and MRA. Orders: Comprehensive metabolic panel; Future Lipid panel with reflex to direct LDL; Future Regadenoson (Lexiscan) nuclear stress test with myocardial perfusion; Future Longstanding persistent atrial fibrillation 08/31 Assessment & Plan (10/01/2024 1:37 PM EDT): The patient has a history of atrial fibrillation. The patient's heart rate has remained well-controlled without the use of rate control agents. Also, the patient has an increased FFF5HA6-XSAc score and continues on anticoagulation therapy with apixaban. No episodes of abnormal bleeding have been noted. Will continue current therapy. Orders: Comprehensive metabolic panel; Future Lipid panel with reflex to direct LDL; Future Other cardiomyopathies 09/10/2024 Assessment & Plan (10/01/2024 1:37 PM EDT): Orders: Regadenoson (Lexiscan) nuclear stress test with myocardial perfusion; Future Encounters Date Type Department Care Team Description 10/09/2024 Telephone Internal Medicine [facility] [address] [place] [phone] Eva Lee PA Referral (Pulmonary Insurance Referral) 09/23/2024 8:30 AM EDT Ancillary Procedure [facility] [address] [place] [phone] Chronic HFrEF (heart failure with reduced ejection fraction) (CMS/HCC); Other cardiomyopathies (CMS/HCC) 09/10/2024 2:30 PM EDT Office Visit [facility] Cardiology [facility] [address] [place] [phone] Arthur Ferrara MD Chronic HFrEF (heart failure with reduced ejection fraction) (CMS/HCC) (Primary Dx); Longstanding persistent atrial fibrillation (CMS/HCC); Other cardiomyopathies (CMS/HCC); Atrial fibrillation, unspecified type (CMS/HCC) 09/04/2024 Telephone Internal Medicine [facility] [address] [place] [phone] Eva Lee PA 08/21/2024 Telephone Internal Medicine [facility] [address] [facility] [address] [place] [phone] Shana Puente [place] faxed form ([facility] ) 08/12/2024 Vale Internal Medicine [facility] [address] [place] [phone] Eva Lee PA Melonie - Referral 08/02/2024 Telephone Internal Medicine - [address] [place] [address] Eva Lee PA Melonie: Echo from Last 3 Months Medical History Medical [...] Tobacco: Never Alcohol Use Standard Drinks/Week Comments Yes 0 (1 standard drink = 0.6 oz pur e alcohol) occ Housing Instability Answer Date Recorde d Are [...] for your loved ones. For example, child and family counselor or elderly care for an older [...] Sign Reading Time Taken Comments Blood Pressure 133/81 09/23/2024 8:53 AM EDT Pulse 69 09/10/2024 2:42 PM EDT Temperature 36.3 ??C (97.3 ??F) 06/11/2024 10:[address] Respiratory Rate - - Oxygen Saturation 98% 09/10/2024 2:42 PM EDT Inhaled Oxygen Concentration - - Weight 64.9 kg (143 lb) 09/23/2024 8:25 AM EDT Height 165.1 cm (5' 5 ) 09/23/2024 8:25 AM EDT Body Mass Index 23.8 09/23/2024 8:25 AM EDT Plan of Treatment Upcoming Encounters Date Type Department Care Team (Late st Contact Info) Description 10/28/2024 10:45 AM EDT Office Visit Internal Medicine - [address] [place] [phone] Eva Lee PA [address] [place] [address] 12/06/2024 8:40 AM EDT Office Visit [facility] Cardiology [facility] [address] [place] [phone] Evelin Schwartz, VICTORINA [address] [place] [address] Health Maintenance Due Date Last Done Comments DTaP,Tdap,and Td Vaccines (1 - Tdap) 1959 Zoster Vaccines (1 of 2) 1989 RSV Immunization Adult Patie nts (1 - 1-dose 75+ series) 2014 Pneumococcal Vaccine: 50+ Ye ars (2 of 2 - PPSV23) 06/01/2016 04/06/2016 Cholesterol Screening (Lipid Panel) 06/05/2022 Depression Screening 06/05/2022 Falls Risk Assessment 06/05/2022 Medicare Annual Wellness Visit 06/05/2022 COVID-19 Vaccine (1 - 2023-2 5 season) 2024 Hypertension/CHF/CAD Annual BMP Blood Test 11/27/2024 11/28/2023 Influenza Vaccine (Season Ended) 2025 Social Influencers of Health Screening 06/10/2025 06/10/2024 [...] age to complete this topic Meningococcal B Vaccine Aged Out No l onger eligible based on patient's age to complete this topic RSV Immunization Patients Un puja 20 months Aged Out No longer eligible b ased on patient's age to complete this topic Varicella Vaccines Aged Out No longer eligible based on patient's age to complete this topic Procedures Procedure Name Priority Date/Time Associated Diagnosis Comments NM LEXISCAN STRESS TEST W/ MYOCARDIAL PERFUSION Routine 09/23/2024 11:22 AM EDT Chronic HFrEF (heart failure with reduced ejection fraction) (CMS/HCC) Other cardiomyopathies (CMS/HCC) ECG 12-LEAD Routine 09/10/2024 2:47 PM EDT Atrial fibrillation, unspecified type (CMS/HCC) EXTERNAL CLINICAL LAB 09/06/2024 from Last 3 Months Results * NM LEXISCAN STRESS TEST W/ MYOCARDIAL PERFUSION (09/23/2024 11:22 AM EDT) Exercise/injec tion duration (min) 0 CV PACS STRESS Exercise/injec tion duration (sec) 50 CV PACS STRESS Peak SBP 100 mmHg CV PACS STRESS Peak DBP 60 mmHg CV PACS STRESS Peak HR 136 bpm CV PACS STRESS Baseline HR 78 bpm CV PACS STRESS Baseline SBP 133 mmHg CV PACS STRESS Baseline DBP 81 mmHg CV PACS STRESS Estimated workload 1.0 METS CV PACS STRESS Percent HR 101 % CV PACS STRESS Rate Pressure Product 13,600.0 mmHg*bpm CV PACS STRESS Target HR 115 bpm CV PACS STRESS BSA 1.72 m2 CV PACS STRESS TID 1.09 CV PACS STRESS Nuc Stress EF 49 % CV PAC S STRESS Nuc Rest EF 49 % CV PACS STRESS Anatomical Region Laterality Modality Nuclear Medicine 09/23/2024 9:46 AM EDT 09/23/2024 10:34 AM EDT Narrative 09/24/2024 5:10 PM EDT ?This is probably an abnormal regadenoson nuclear perfusion stress test. ?LV perfusion is probably abnormal. A small area of apical ischemia and basal to mid inferior wall ischemia cannot be excluded. ?Mildly reduced left ventricular function at resst and post-stress with left ventricular ejection fraction 49%. Stress Findings A pharmacological stress test was performed using regadenoson, 0.4 mg IV over 10-15 seconds, followed by radiopharmacological injection 10 seconds post infusion. Total stress time was 0 min and 50 sec. The patient reached the end of the protocol. Reversal medication aminophylline 50 mg IVP given. Blood pressure demonstrated a hypotensive response. Heart rate demonstrated a exaggerated response. The patient reported no symptoms during the stress test. ECG 84 year old male undergoing testing to rule out ischemia. PMH includes HFrEF, HLD and atrial fibrillation. A construction cost estimator was utilized during the entirety of the visit. The ECG shows atrial fibrillation. Non-specific ST abnormalities noted at baseline. Arrhythmias during stress: atrial fibrillation with RVR. There is no significant ST abnormalities during stress in the setting of baseline abnormal ECG. Arrhythmias during recovery: atrial fibrillation. Nuclear Study Quality Study technique: MPI, SPECT, multi, rest and stress, 1 day. Overall image quality is good. CT attenuation correction was utilized. Diaphragmatic attenuation artifact is present. No radiopharmaceutical dose was extravasated. The time from injection to rest imaging is 45 mins. The time from injection to stress imaging is 45 mins. Stress Function Comments Left ventricular systolic function post-stress is abnormal. Global function is mildly reduced. Stress ejection fraction is 49%. The stress end diastolic cavity size is normal. Rest Function Comments Left ventricular function at rest was abnormal. Resting ejection fraction was 49%. Global function is mildly reduced. CT Findings Heavy LAD calcification noted. Perfusion Comments LV perfusion is probably abnormal. There is more prominent apical defect with stress compared to rest. This could be caused by apical thinning although small area apical ischemia cannot be excluded. There is possible mild ischemia of basal to mid inferior wall. us Arthur Ferrara MD CV STRESS PROCEDURES F inal Result * ECG 12 lead (09/10/2024 2:47 PM EDT) Ventricular Rate ECG 80 BPM GEMUSE Atrial Rate 91 BPM GEMUSE QRS Duration 86 ms GEMUSE Q-T Interval 382 ms GEMUSE QTc 440 ms GEMUSE R Carson 53 degrees GEMUSE T Carson 8 degrees GEMUSE ECG Interpretation Atrial fibrillation Poor R wave progression Abnormal ECG No previous ECGs available Confirmed by ARTHUR FERRARA ([id number]) on 09/12/2024 9:18:27 AM GEMUSE 09/10/2024 2:47 PM EDT 09/12/2024 9:18 AM EDT Arthur Ferrara MD ECG ORDERABLES Final Result GEMUSE * External clinical lab (09/06/2024) us Provider [facility] BLOOD ORDERABLES Fin al Result from Last 3 Months Insurance [employer] Advance Directives Documents on File Type Date Recorded 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
--- OUTSIDE RECORDS SUMMARY | 2024-10-09 12:31 | XMS_ITS | Encounter Summary ---
Author Organization [facility] Address [address] [place] [address] Care Team Providers Care Digital Account Coordinator Name Role Phone Eva Lee Primary Care Provider + Reason for Referral * Consultation (Routine) - Pending Review Specialty Diagnoses / Procedures Referred By Lisa palomares Referred To Contact Pulmonary Disease Diagnoses Asthma Eva Lee PA [address] [address] Phone: tel: fax: Freddy Rebolledo MD [address] [place] [phone] Phone: tel: Referral ID Status Reason Start Date Expiration Date Visits Requested Visits Authorized [id number] Pending Review Specialty Services Required 10/09/2024 10/09/2025 6 6 Reason for Visit * Reason Onset Date Comments Referral 10/09/2024 Pulmonary Insura nce Referral Encounter Details Date Type Department Care Team (Late st Contact Info) Description 10/09/2024 Telephone Internal Medicine - [place] [address] [facility] [address] [place] [address] Eva Lee PA [address] [facility] [address] [place] [address] Referral (Pulmonary Insurance Referral) Social History Tobacco Use Types Packs/Day Years [...] for your loved ones. For example, child welfare consultant or elderly care for an older adult? [...] as of this encounter Progress Notes * Syeda Castaneda - 10/09/2024 12:06 PM EDT What insurance does the patient have today? [facility]: [email or web address]@ Referrals cannot be processed if the insurance is not accurate. If the insurance listed above is NO BILLING INFORMATION FOUND FOR THIS ENCOUNTER then the patients correct insurance must be obtainedand registered in [facility] or their referral can not be processed. Name of person calling to request this referral? Fax Referred To Provider (Include first and last name): Freddy Rebolledo NPI (if known): [id number] Order/Specialty requested pulmonology Chief Complaint (Note: This is not a body part or a procedure): asthma J45.909 Has the patient seen provider for this problem/Dx before? N/A Referred To Provider Address: [address] [place] [address] Taisha Terrell [place] Referred To Provider Referred To Provider Does patient have an appointment scheduled?: no If yes, what is the date of the appointment?: Is this a retro request? Yes 10/08/24 Number of visits requested: 6 Is this appointment related to: MVA or worker compensation? no documented in this encounter Plan of Treatment Upcoming Encounters Date Type Department Care Team (Late st Contact Info) Description 10/28/2024 10:45 AM EDT Office Visit Internal Medicine - [place] [address] [facility] [address] [place] [address] Eva Lee PA 175 [facility] [address] [place] [address] 12/06/2024 8:40 AM EDT Office Visit [facility] - [address] [place] [address] Evelin Schwartz NP [address] [place] [address] [address] [place] [address] Scheduled Referrals Name Type Priority Associated Diagnoses Order Schedule Ambulatory referral to Pulmonology Outpatient Referral Routine Asthma Expected: 10/09/2024, Expires: 10/09/2025 documented as of this encounter Visit Diagnoses Diagnosis Asthma- Primary Unspecified asthma documented in this encounter Care Teams Digital Account Coordinator Relationship Specialty Start Date End Date Eva Lee PA 175 [facility] [address] [place] [address] PCP - General Internal Medicine 11/12/19 documented as of this encounter
--- OUTSIDE RECORDS SUMMARY | 2024-10-09 12:31 | XMS_ITS | Encounter Summary ---
Author Organization [employer] Address [address] [place] [address] Care Team Providers Care High [employer] Computer Science Teacher Name Role Phone Eva Lee Primary Care Provider + Reason for Referral * Consultation (Routine) - Authorized Specialty Diagnoses / Procedures Referred By Contabdirahman t Referred To Contact Cardiology Diagnoses Atrial fibrillation, unspecified type (CMS/HCC) Eva Lee PA [address] [place] [address] Phone: tel: fax: [facility] Associates [facility] [address] [place] [address] Phone: tel: fax: Referral ID Status Reason Start Date Expiration Date Visits Requested Visits Authorized [id number] Authorized Specialty Services Required 09/09/2024 09/09/2025 10 10 Scheduling Instructions Not referral received. [facility] is requesting a referral for pt. Pt has appt on 09/10/24 @ 2:30pm. Tucker Aviles NPI# [id number] [address], [place], [place] Encounter Details Date Type Department Care Team (Late st Contact Info) Description 09/04/2024 Telephone Internal Medicine - [place] [address] [facility] [address] [place] [phone] Eva Lee PA 175 [facility] [address] [place] [address] Social History Tobacco Use Types Packs/Day Years [...] your loved ones. For example, child and adolescent psychiatrist or elderly care for an older adult? [...] encounter Progress Notes * EMMETT Kenyon - 09/06/2024 4:08 PM EST Referral placed. Thank you. * Krystin Trivedi MA - 09/06/2024 1:40 PM EST Not referral received. [facility] is requesting a referral for pt. Pt has appt on 09/10/24 @ 2:30pm. Tucker Aviles NPI# [id number] [address] [place], [place] Please advice. * Myesha Britt - 09/04/2024 10:05 AM EST [facility] is calling to check if we received a faxed insurance referral to our office that was faxed on 08/30? Seeing Tucker Aviles npi# [id number] On 09/10/24 at 2:30pm [address], [address], [place] [address] documented in this encounter Plan of Treatment Upcoming Encounters Date Type Department Care Team (Late st Contact Info) Description 10/28/2024 10:45 AM EDT Office Visit Internal Medicine - [place] [address] [place] [address] Eva Lee PA [address] [place] [address] 12/06/2024 8:40 AM EDT Office Visit [facility] Associates - [facility] [address] [place] [address] Evelin Schwartz NP [address] [place] [address] [address] [place] [address] Scheduled Referrals Name Type Priority Associated Diagnoses Order Schedule Ambulatory referral to Cardiology Outpatient Referral Routine Atrial fibrillation, unspecified type (CMS/HCC) 1 Occurrences starting 09/06/2024 until 09/06/2025 documented as of this encounter Visit Diagnoses Diagnosis Atrial fibrillation, unspecified type (CMS/HCC)- Primary documented in this encounter Care Teams [employer] Computer Science Teacher Relationship Specialty Start Date End Date Eva Lee PA [address] [facility] [address] [place] [address] PCP - General Internal Medicine 11/12/19 documented as of this encounter
== END 2024-10-09 11:16 | disposition home or self-care (01) ==
LOC: HO.HPS 10:48
PROVIDERS: PCP Physician Assistant; Visit Provider Internal Medicine Pulmonary Disease
DX: J84.9 Interstitial pulmonary disease, unspecified (principal); R06.09 Other forms of dyspnea; J45.909 Unspecified asthma, uncomplicated
CPT/HCPCS: 99214; G2211

== ENCOUNTER → 2024-10-17 10:59 | Outpatient (REF) | payer OTHER, SELFPAY ==
--- NOTE | 2024-10-17 11:02 | CA_ITS ---
Transthoracic Echocardiogram Patient (Last, First, Middle): Joaquim Stoll, Gender: Male Date of : 1940 Age: 84 Procedure Date: 10/17/2024 Procedure Type: Transthoracic Echocardiogram Location: OP Height: 165.1 cm Weight: 65.77 kg BSA: 1.73 m2 Heart Rate: bpm BP: 98 / 60 mmHg Machine Packaging Technician: ARNULFO Referring MD: Freddy Rebolledo MD Editor At Large: Robert Durham MD Symptoms: R06.09 - Other forms of dyspnea Study Quality: Fair ECG Rhythm: Atrial Fibrillation Conclusions: - 1. Mildly to moderately reduced LV ejection fraction of 40-45% with suggestion of elevated left ventricular end-diastolic pressure 2. Biatrial enlargement, right greater than left 3. Moderately reduced RV systolic function 4. Early mild aortic stenosis 5. No gross pericardial effusion Findings Left Ventricle Normal left ventricular cavity size. There is normal left ventricular wall thickness. The left ventricular systolic function is mild to moderately decreased. The visually estimated ejection fraction is between 40-45%. Diastolic function is indeterminate on the basis of available data. Elevated left ventricular end diastolic pressure. Right Ventricle Normal right ventricular cavity size. There is moderately decreased right ventricular systolic function. Atria The left atrium is moderately dilated. There is no evidence of interatrial shunt. The right atrium is severely dilated. Aortic Valve There is mild calcification of the aortic valve. There is mild aortic valve stenosis. The mean gradient is 6 mmHg. The aortic valve area is 1.81 cm2. There is no aortic valve regurgitation. Mitral Valve Normal mitral valve structure and function. There is trace mitral valve regurgitation. There is no mitral valve stenosis. Tricuspid Valve Likely normal tricuspid valve structure and function. Tricuspid regurgitation envelope is inadequate for calculation of right ventricular systolic pressure. Normal right atrial pressure. Great Vessels The pulmonary artery was not well visualized. There is no dilatation of the ascending aorta measuring 3.40 cm. Venous The inferior vena cava is normal in size and collapses greater than 50% with inspiration. Pericardium/Pleural There is no evidence of pericardial effusion. Prior Study Comparison No prior study available for comparison. Measurements 2D Linear Measurements IVSd: 0.79 0.6-0.9/0.6-1.0 cm LVIDd: 5.18 3.9-5.3/4.2-5.9 cm LVIDd Index: 2.99 2.4-3.2/2.2-3.1 cm/m2 LVIDs: 4.21 2.0-3.6 cm LVPWd: 0.76 0.7-1.1 cm LA Diam: 3.10 2.7-3.8/3.0-4.0 cm LAIDs Index: 1.79 1.5-2.3 cm/m2 LV Mass: 172.18 67-162/88-224 g LV Mass Index: 99.53 43-95/49-115 g/m2 LVOT Diam: 2.20 3.0+(-)1.3 cm Mitral Valve MV Pk E: 0.71 MV Decel Time: 229.00 E'Lateral: 8.25 E'Medial: 6.72 E/E' Med: 10.60 E/E' Lat: 8.60 PHT: 67.00 MVA PHT: 3.28 Decel Searcy: 3.71 Aortic Valve AoV Pk Christian: 1.57 AoV Mn Christian: 1.10 AoV VTI: 0.34 AoV Pk Grad: 10.00 Aov Mn Grad: 6.00 TICO Cont.VTI: 1.81 LVOT LVOT Pk Christian: 0.85 LVOT Mn Christian: 0.53 LVOT VTI: 0.16 LVOT Pk Grad: 3.00 LVOT Mn Grad: 1.00 LVOT Diam: 2.20 LVOT Area: 3.80 Diastolic Function MV Pk E: 0.71 E'Medial: 6.72 E/E' Med: 10.60 E' Laterial: 8.25 E/E' Lat: 8.60 Right Ventricle TAPSE (mm): 13.20 TVS' Christian: 8.43 Tricuspid Valve RA Press: 3.00 Great Vessels Aorta Sinus of Valsalva: 3.38 2.0-3.[address] Ridge: 1.94 1.7-3.4 cm Ao Asc: 3.40 2.1-3.4 cm Updated in Other Vendor System with Status of Final Robert Durham MD electronically signed on 10/17/2024 3:42:30 PM with status of Final
--- OUTSIDE RECORDS SUMMARY | 2024-10-17 13:27 | XMS_ITS | Encounter Summary ---
Author Organization [address] [address] [place] [address] Care Team Providers Care Forest Fire Specialist Supervisor Name Role Phone Eva Lee Primary Care Provider + Reason for Referral * Consultation (Routine) - Closed Specialty Diagnoses / Procedures Referred By Lisa palomares Referred To Contact Pulmonary Disease Diagnoses Asthma Eva Lee PA [address] [address] Phone: tel: fax: Freddy Rebolledo MD [address] [place] [address] Phone: tel: Referral ID Status Reason Start Date Expiration Date V isits Requested Visits Authorized [id number] Closed Specialty Services Required 10/08/2024 10/08/2025 6 6 Reason for Visit * Reason Onset Date Comments Referral 10/09/2024 Pulmonary Insura nce Referral Encounter Details Date Type Department Care Team (Late st Contact Info) Description 10/09/2024 Telephone Internal Medicine - [place] [address] [place] [address] Eva Lee, EMMETT [address] [place] [address] Referral (Pulmonary Insurance Referral) Social History Tobacco [...] care for your loved ones. For example, children librarian or elderly care for an older adult? [...] insurance does the patient have today? Payor: [email or web address] Referrals cannot be processed if the insurance is not accurate. If the insurance listed above is NO BILLING INFORMATION FOUND FOR THIS ENCOUNTER then the patients correct insurance must be obtainedand registered in [facility] or their referral can not be processed. Name of person calling to request this referral? Fax Referred To Provider (Include first and last name): Freddy Rebolledo NPI (if known): [id number] Order/Specialty requested pulmonology Chief Complaint (Note: This is not a body part or a procedure): asthma J45.909 Has the patient seen provider for this problem/Dx before? N/A Referred To Provider Address: [address] [place] [address] Taisha Terrell [place] Referred To Provider Referred [...] AM EDT Office Visit Internal Medicine - [place] [address] [place] [address] Eva Lee PA [address] [facility] [address] [place] [address] 12/06/2024 8:40 AM EDT Office Visit [facility] - [address] [place] [address] Evelin Schwartz NP [address] [place] [address] [address] [place] [address] Scheduled Referrals Name Type Priority Associated Diagnoses Order Schedule Ambulatory referral to Pulmonology Outpatient Referral Routine Asthma Expected: 10/09/2024, Expires: 10/09/2025 documented as of this encounter Visit Diagnoses Diagnosis Asthma- Primary Unspecified asthma documented in this encounter Care Teams Forest Fire Specialist Supervisor Relationship Specialty Start Date End Date Eva Lee PA 175 [facility] [address] [place] [address] PCP - General Internal Medicine 11/12/19 documented as of this encounter
--- OUTSIDE RECORDS SUMMARY | 2024-10-17 13:27 | XMS_ITS | Clinical Summary ---
Author Organization [address] [place] [address] [place] [phone] Phone Care Team Providers Care Marketing Financial Analyst Name Role Phone Eva Lee Primary Care Provider + Allergies Active Allergy Reactions Criticality Noted Date Comments Penicillins Swelling 06/11/2024 Medications sacubitriL-vals bill (Entresto) 24-26 mg per tablet TAKE 1 [...] mouth 1 (one) time each day. Active Hospital, Clinic, or Other Facility Administered Medication [...] HFrEF (heart failure with reduced ejection fraction) (CMS/HCC V24, CMS/HCC V28) 09/10/2024 Assessment & Plan (10/01/2024 1:37 PM [...] test with myocardial perfusion; Future Longstanding persistent atri al fibrillation (CMS/HCC V24, CMS/HCC V28) 09/10/2024 Assessment & Plan (10/01/2024 1:37 PM EDT): The patient has a history of atrial fibrillation. The patient's heart rate has remained well-controlled without the use of rate control agents. Also, the patient has an increased [id number] score and continues on anticoagulation therapy with apixaban. No episodes of abnormal bleeding have been noted. Will continue current therapy. Orders: Comprehensive metabolic panel; Future Lipid panel with reflex to direct LDL; Future Other cardiomyopathies (CMS/HCC V24, CMS/HCC V28 ) 09/10/2024 Assessment & Plan (10/01/2024 1:37 PM EDT): Orders: Regadenoson (Lexiscan) nuclear stress test with myocardial perfusion; Future Encounters Date Type Department Care Team Description 10/09/2024 Telephone Internal Medicine - [place] [address] [facility] [address] [place] [address] Eva Lee PA Referral (Pulmonary Insurance Referral) 09/23/2024 8:30 AM EDT Ancillary Procedure [facility] Cardiology [facility] [address] [place] [address] Chronic HFrEF (heart failure with reduced ejection fraction) (CMS/HCC V24, CMS/HCC V28); Other cardiomyopathies (CMS/HCC V24, CMS/HCC V28) 09/10/2024 2:30 PM EDT Office Visit [facility]iology [address] [place] [address] Arthur Ferrara MD Chronic HFrEF (heart failure with reduced ejection fraction) (CMS/HCC V24, CMS/HCC V28) (Primary Dx); Longstanding persistent atrial fibrillation (CMS/HCC V24, CMS/HCC V28); Other cardiomyopathies (CMS/HCC V24, CMS/HCC V28); Atrial fibrillation, unspecified type (CMS/HCC V24, CMS/HCC V28) 09/04/2024 Telephone Internal Medicine - [place] [address] [place] [address] Eva Lee PA 08/21/2024 Telephone Internal Medicine - [place] [address] [facility] [address] [place] [address] Shana Puente [place] faxed form ([facility] ) 08/12/2024 Telephone Internal Medicine - [place] [address] [facility] [address] [place] [address] Eva Lee PA Melonie - Referral 08/02/2024 Telephone Internal Medicine - [place] 175 [facility] 200 [place] [address] Eva Lee PA Melonie: Echo from Last 3 Months Medical History Medical History Date Comments Allergic rhinitis 01/11/2018 DX:Allergic rh initis Asthma 09/06/2017 DX:Asthma Atrial fibrillation (CMS/HCC V24, CMS/HCC V28) 03/28/2018 DX:Atrial fibrillation (HCC) ; COMMENT: On anticoagulation BPH (benign prostatic hyperplasia) [...] your loved ones. For example, early childhood specialist or elderly care for an older [...] AM EDT Office Visit Internal Medicine - [place] [address] [place] [phone] Eva Lee PA [address] [place] [address] 12/06/2024 8:40 AM EDT Office Visit [facility] - [facility] [address] [place] [phone] Evelin Schwartz NP [address] [facility] [address] [place] [address] Health Maintenance Due Date Last Done Comments [...] HFrEF (heart failure with reduced ejection fraction) (CMS/HCC V24, CMS/HCC V28) Other cardiomyopathies (CMS/HCC V24, CMS/HCC V28) ECG 12-LEAD Routine 09/10/2024 2:47 PM EDT Atrial fibrillation, unspecified type (CMS/HCC V24, CMS/HCC V28) EXTERNAL CLINICAL LAB 09/06/2024 from Last 3 [...] includes HFrEF, HLD and atrial fibrillation. A interpreter and translator was utilized during the entirety of the [...] ms GEMUSE QTc 440 ms GEMUSE R [place] 53 degrees GEMUSE T [place] 8 degrees GEMUSE ECG Interpretation Atrial fibrillation Poor R wave progression Abnormal ECG No previous ECGs available Confirmed by ARTHUR FERRARA ([id number]) on 09/12/2024 9:18:27 AM GEMUSE 09/10/2024 2:47 PM EDT 09/12/2024 9:18 AM EDT us Arthur Ferrara MD ECG ORDERABLES Final Result GEMUSE * External clinical lab (09/06/2024) us Provider [facility] BLOOD ORDERABLES Fin al Result from Last 3 Months Insurance [employer] Advance Directives Documents on File Type Date Recorded 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
== END ==
LOC: HO.CARD 10:59
PROVIDERS: PCP Physician Assistant; Visit Provider Internal Medicine Pulmonary Disease
DX: R06.09 Other forms of dyspnea (principal)
CPT/HCPCS: 93306

== ENCOUNTER → 2024-10-17 11:02 | Outpatient (BNV) | payer OTHER, SELFPAY | PROVIDERS: PCP Physician Assistant; Visit Provider Internal Medicine Cardiovascular Disease | DX: I35.0 Nonrheumatic aortic (valve) stenosis (principal); I51.7 Cardiomegaly | CPT/HCPCS: 93306 ==

== ENCOUNTER 2024-11-15 13:19 | Outpatient (REF) | payer OTHER, SELFPAY ==
--- NOTE | ~2024-11-15 | CT_ITS ---
EXAMINATION: CT CHEST WITHOUT IV CONTRAST INDICATION: J84.9 - Interstitial pulmonary disease, unspecified COMPARISON: There are no prior studies available for comparison. TECHNIQUE: Helical CT scan of the chest was performed without intravenous contrast. Coronal and sagittal reformatted images were generated and reviewed. This CT exam was performed with one or more of the following dose reduction techniques: automated exposure control, adjustment of the mA and/or kV according to patient size, use of iterative reconstruction technique. DLP: 140 mGy-cm CHEST: THYROID: The thyroid is unremarkable. LUNGS: There is a 5 mm spiculated nodule in the right upper lobe (series 9, image 68). There is bronchiectasis and scarring in the right middle lobe. A tubular opacity in the right middle lobe likely represents mucoid impaction within a bronchus (series 9, images 86-91). There is bronchial wall thickening and partial obstruction in both lower lobes. There is scarring in the medial aspect of the left lower lobe. There is no significant emphysema. There are no thickened interlobular septae, groundglass opacities, or honeycombing. MEDIASTINUM: There is no mediastinal lymphadenopathy. SAM: Evaluation of the hilar regions is limited by lack of intravenous contrast material. CARDIOVASCULATURE: The heart is enlarged. There is no pericardial effusion. The thoracic aorta is normal in caliber. DEGREE OF CORONARY CALCIFICATION: severe PLEURA: There is no pleural effusion. No pneumothorax. MAIN AIRWAYS: The mainstem bronchi and proximal branches are patent. AXILLA: There is no axillary lymphadenopathy. BONES AND SOFT TISSUES: Unremarkable UPPER ABDOMEN: The visualized portions of the liver, spleen, and adrenals have an unremarkable unenhanced appearance. There is cholelithiasis. CT/CT chest wo IV con IMPRESSION: 1. Bronchiectasis in the right middle lobe. Probable mucoid impaction in the right middle lobe. 2. Bronchial wall thickening and partial obstruction in both lower lobes. 3. 5 mm spiculated nodule in the right upper lobe. Follow-up should be performed according to Fleischner Society guidelines below. 4. Cardiomegaly and severe coronary arterial calcification. Fleischner Criteria for pulmonary nodule follow-up SOLID NODULES: Low risk patient: <6mm: no follow-up 6-8mm: 6 month follow-up CT >8mm: PET/Biopsy/ 3 month follow-up CT High risk patient: <6mm: 12 month follow-up CT 6-8mm: 6 month follow-up CT >8mm: PET/Biopsy/ 3 month follow-up CT SUB-SOLID/GROUNDGLASS NODULES: All patients: > or = 6mm: 6 month follow-up CT *Please note that in patients in the following categories, the Fleischner criteria do not apply: Immunocompromised, lung cancer screening population, age below 35, and patients with known malignancy Electronically signed by: Hugo Ortiz MD 11/15/2024 02:11 PM EDT
--- OUTSIDE RECORDS SUMMARY | 2024-11-15 13:23 | XMS_ITS | Clinical Summary ---
Author Organization 175 [facility] Address 175 [place] [address] Phone Care Team Providers Care Ecommerce Marketing Manager Name Role Phone Eva Lee Primary [...] mouth 1 (one) time each day. Active Active Problems Problem Noted Date Diagnosed Date [...] agents. Also, the patient has an increased [id number] score and continues on anticoagulation therapy with apixaban. No episodes of abnormal bleeding have been noted. Will continue current therapy. Orders: Comprehensive metabolic panel; Future Lipid panel with reflex to direct LDL; Future Other cardiomyopathies (CMS/HCC V24, CMS/HCC V28 ) 09/10/2024 Assessment & Plan (10/01/2024 1:37 PM EDT): Orders: Regadenoson (Lexiscan) nuclear stress test with myocardial perfusion; Future Allergic rhinitis Overview (11/08/2024): DX:Allergic rhinitis Asthma Overview (11/08/2024): DX:Asthma Atrial fibrillation (CMS/HCC V24, CMS/HCC V28) Overview (11/08/2024): DX:Atrial fibrillation (HCC); COMMENT: On anticoagulation BPH (benign prostatic hyperplasia) Overview (11/08/2024): DX:BPH (benign prostatic hyperplasia) Hyperlipidemia Overview (11/08/2024): DX:Hyperlipidemia Encounters Date Type Department Care Team Description 11/08/2024 9:45 AM EDT Office Visit Internal Medicine [facility] [address] [place] [address] Eva Lee PA Moderate persistent asthma without complication (Primary Dx); Allergic rhinitis, unspecified seasonality, unspecified trigger; Chronic HFrEF (heart failure with reduced ejection fraction) (CMS/HCC V24, CMS/HCC V28); Longstanding persistent atrial fibrillation (CMS/HCC V24, CMS/HCC V28); Pure hypercholesterolemia 10/18/2024 Telephone [facility] [address] [place] [address] Arthur Ferrara MD 10/09/2024 Telephone Internal Medicine - [place] [address] [place] [address] Eva Lee PA Referral (Pulmonary Insurance Referral) 09/23/2024 8:30 AM EDT Ancillary Procedure [facility]iology [facility] [address] [place] [address] Chronic HFrEF (heart failure with reduced ejection fraction) (CMS/HCC V24, CMS/HCC V28); Other cardiomyopathies (CMS/HCC V24, CMS/HCC V28) 09/10/2024 2:30 PM EDT Office Visit [facility] [address] [place] [address] Stefan-Arthur Alvarez MD Chronic HFrEF (heart failure with reduced ejection fraction) (CMS/HCC V24, CMS/HCC V28) (Primary Dx); Longstanding persistent atrial fibrillation (CMS/HCC V24, CMS/HCC V28); Other cardiomyopathies (CMS/HCC V24, CMS/HCC V28); Atrial fibrillation, unspecified type (CMS/HCC V24, CMS/HCC V28) 09/04/2024 Telephone Internal Medicine - [place] 175 [facility] [address] [place] [address] Eva Lee PA 08/21/2024 Telephone Internal Medicine [facility] 175 [facility] [address] [place] [address] Shana Puente [place] faxed form ([facility] ) from Last 3 Months Medical History Medical History Date Comments Allergic rhinitis 01/11/2018 DX:Allergic rh initis Asthma 09/06/2017 DX:Asthma Atrial fibrillation (CMS/HCC V24, CMS/HCC V28) 03/28/2018 DX:Atrial fibrillation ([facility]) ; COMMENT: On anticoagulation BPH (benign prostatic [...] Sign Reading Time Taken Comments Blood Pressure 132/82 11/08/2024 9:34 AM EDT Pulse 77 11/08/2024 9:34 AM EDT Temperature 36.6 ??C (97.8 ??F) 11/08/2024 9:34 AM ED T Respiratory Rate - - Oxygen Saturation 98% 11/08/2024 9:34 AM EDT Inhaled Oxygen Concentration - - Weight 64.4 kg (142 lb) 11/08/2024 9:34 AM EDT Height 165.1 cm (5' 5 ) 11/08/2024 9:34 AM EDT Body Mass Index 23.63 11/08/2024 9:34 AM EDT Plan of Treatment Upcoming Encounters Date Type Department Care Team (Late st Contact Info) Description 12/06/2024 8:40 AM EDT Office Visit [facility] [address] [place] [address] Evelin Schwartz, VICTORINA [address] [place] [address] [address] [place] [address] 05/13/2025 10:30 AM EST Office Visit Internal Medicine - [place] [address] [facility] [address] [place] [address] Eva Lee, PA 175 [facility] [address] [place] [address] Health Maintenance Due Date Last Done Comments [...] includes HFrEF, HLD and atrial fibrillation. A aws consultant was utilized during the entirety of the [...] ms GEMUSE QTc 440 ms GEMUSE R [place] 53 degrees GEMUSE T [place] 8 degrees GEMUSE ECG Interpretation Atrial fibrillation Poor R wave progression Abnormal ECG No previous ECGs available Confirmed by ARTHUR FERRARA ([id number]) on 09/12/2024 9:18:27 AM GEMUSE 09/10/2024 2:47 PM EDT 09/12/2024 9:18 AM EDT Arthur Ferrara MD ECG ORDERABLES Final Result GEMUSE * External clinical lab (09/06/2024) Provider [facility] BLOOD ORDERABLES Fin al Result from Last 3 Months Insurance [employer] Advance Directives Documents on File Type Date Recorded Patient Cigarette Examiner Expl anation DNR (Do Not Resuscitate) 05/07/2024 2:54 PM [facility] Care Teams Ecommerce Marketing Manager Relationship Specialty Start Date End Date Eva Lee PA [address] [place] [address] PCP - General Internal Medicine 11/12/19
== END 2024-11-15 13:20 | disposition home or self-care (01) ==
LOC: HO.CT 13:19
PROVIDERS: PCP Physician Assistant; Visit Provider Internal Medicine Pulmonary Disease
DX: J84.9 Interstitial pulmonary disease, unspecified (principal)
CPT/HCPCS: 71250

== ENCOUNTER → 2024-11-15 13:23 | Outpatient (BNV) | payer OTHER, SELFPAY | PROVIDERS: PCP Physician Assistant; Visit Provider Radiology Diagnostic Radiology | DX: R91.1 Solitary pulmonary nodule (principal) | CPT/HCPCS: 71250 ==

== ENCOUNTER 2024-11-21 12:12 | Outpatient (AMB) | payer OTHER, SELFPAY ==
--- OUTSIDE RECORDS SUMMARY | 2024-11-21 12:28 | XMS_ITS | Clinical Summary ---
Author Organization 175 [facility] Address 175 [place] [address] Phone Care Team Providers Care Aerial Erector Name Role Phone Eva Lee Primary Care [...] agents. Also, the patient has an increased [id number]-[id number] score and continues on anticoagulation therapy with [...] 9:45 AM EDT Office Visit Internal Medicine [facility] [address] [place] [address] Eva Lee PA Moderate persistent asthma without complication (Primary Dx); Allergic rhinitis, unspecified seasonality, unspecified trigger; Chronic HFrEF (heart failure with reduced ejection fraction) (CMS/HCC V24, CMS/HCC V28); Longstanding persistent atrial fibrillation (CMS/HCC V24, CMS/HCC V28); Pure hypercholesterolemia 10/18/2024 Telephone [facility] Cardiology [facility] [address] [place] [address] Arthur Ferrara MD 10/09/2024 Telephone Internal Medicine - [place] [address] [place] [address] Eva Lee PA Referral (Pulmonary Insurance Referral) 09/23/2024 8:30 AM EDT Ancillary Procedure [facility] Cardiology [facility] [address] [place] [phone] Chronic HFrEF (heart failure with reduced ejection fraction) (CMS/HCC V24, CMS/HCC V28); Other cardiomyopathies (CMS/HCC V24, CMS/HCC V28) 09/10/2024 2:30 PM EDT Office Visit [facility] [address] [place] [address] YulianaArthur MD Chronic HFrEF (heart failure with reduced ejection fraction) (CMS/HCC V24, CMS/HCC V28) (Primary Dx); Longstanding persistent atrial fibrillation (CMS/HCC V24, CMS/HCC V28); Other cardiomyopathies (CMS/HCC V24, CMS/HCC V28); Atrial fibrillation, unspecified type (CMS/HCC V24, CMS/HCC V28) 09/04/2024 [facility] [address] [address] Eva Lee PA from Last 3 Months Medical History Medical [...] for your loved ones. For example, children's author or elderly care for an older adult? [...] Description 12/06/2024 8:40 AM EDT Office Visit [facility] [address] [address] [place] [address] Evelin Schwartz, VICTORINA [address] [place] [address] [address] [place] [address] 05/13/2025 10:30 AM EST Office Visit Internal Medicine - [place] [address] [place] [address] Eva Lee PA [address] [facility] [address] [place] [address] Health Maintenance Due Date Last Done Comments [...] includes HFrEF, HLD and atrial fibrillation. A cook mess was utilized during the entirety of the [...] ms GEMUSE QTc 440 ms GEMUSE R [place] 53 degrees GEMUSE T [place] 8 degrees GEMUSE ECG Interpretation Atrial fibrillation [...] Documents on File Type Date Recorded Patient Family Reunification Specialist Expl anation DNR (Do Not Resuscitate) 05/07/2024 2:54 PM [facility] Care Teams Aerial Erector Relationship Specialty Start Date End Date Eva Lee PA 175 [place] [address] PCP - General Internal Medicine 11/12/19
[2024-11-21 12:54] VITALS: BP 110/60; PULSE 99; O2SAT 99; BMI 23.8
--- NOTE | 2024-11-21 12:54 | A.OFFVIS_ITS ---
Vital Signs 11/21/24 12:54 Height 5 ft 5 in Weight 143 lb BMI 23.8 BP 110/60 Blood Pressure Location Rt brachial Position Sitting Pulse 99 Pulse Source Doppler Pulse Oximetry (%) 99 Oxygen Delivery Method Room Air Intake Visit Reasons: Asthma Allergies Penicillins Allergy (Severe, Verified 10/09/24 11:00) Itchiness HPI HPI Asthma: Details: 84-year-old gentleman, nonsmoker, with underlying history of what may be asthma, previously seen by [facility] Pulmonary associates, no followed by product representative, recently taken off likely ?ICS/LABA secondary to ?heart condition. Patient does underlying multiple environmental allergies at worse during colder temperatures. He does have several dogs. Patient denies having recent function or allergy testing. Patient denies having recent cardiac testing. Patient denies underlying family history of pulmonary diseases. Patient has underlying history of exposure to industrial dusts for 3 decades. After the last office visit patient has completed his 2D echocardiogram and CT chest. His CT chest demonstrated bronchiectasis with retained mucus and new 5 mm nodule. He was not able to obtain Breo secondary to insurance reasons. He continues to complain of a cough productive of yellowish sputum. [facility] Social History (Updated 09/04/24 @ 13:33 by Francy Kate [facility]) Patient Tobacco Use Status: Never used Tobacco Review of Systems Const Denies daytime sleepiness, Denies excessive sweating, Denies fatigue, Denies fever(s), Denies lethargy, Denies malaise, Denies night sweats, Denies snoring and Denies weight loss Eyes Denies blurry vision and Denies itchy eyes ENT Denies nasal congestion, Denies post nasal drip, Denies sinus pain, Denies sinus pressure and Denies other ( Thrush) Card Denies chest pain, Denies pedal edema, Denies dyspnea, Denies orthopnea and Denies paroxysmal nocturnal dyspnea Resp Reports cough, Denies hemoptysis, Reports excessive phlegm production, Denies dyspnea, Denies snoring and Denies wheezing GI Denies abdominal pain and Denies heartburn Musc Denies myalgias, Denies arthralgias and Denies joint swelling Skin/Breast Denies rash Neuro Denies memory loss and Denies seizure-like activity Psych Denies abnormal sleep pattern, Denies anxiety and Denies memory loss Endo Denies excessive sweating, Denies fatigue and Denies heat intolerance Mick/Lymph Denies easy bruising Aller/Immun Denies itchy eyes, Denies seasonal rhinorrhea and Denies wheezing Physical Exam Vital Signs: Last Vital Signs Pulse 99 11/21/24 12:54 BP 110/60 11/21/24 12:54 Pulse Ox 99 11/21/24 12:54 Oxygen Delivery Method Room Air 11/21/24 12:54 BMI result Body Mass Index 23.8 Const General: no acute distress and alert Nutritional Appearance: not obese Orientation/consciousness: Other orientation findings ( oriented) HEENT Head: Yes atraumatic Eyes General: appearance normal, both eyes and all related structures Sclerae: sclerae normal EOM: EOMs intact bilaterally Neck Neck: Yes supple Lymphatic: no lymphadenopathy noted Resp Effort & Inspection: normal respiratory effort and no use of accessory muscles Auscultation: clear to auscultation bilaterally Cardio Rate: regular rate Rhythm: regular rhythm Heart sounds: no gallops, no murmurs and no rubs Skin General skin exam: other ( warm) Extrem General: No clubbing, No cyanosis and No edema Assessment & Plan Assessment & Plan (1) Bronchiectasis: Code(s): J47.9 - Bronchiectasis, uncomplicated Category: Medical Plan: Now with an acute exacerbation, will treat with a course of doxycycline. (2) Asthma: Code(s): J45.909 - Unspecified asthma, uncomplicated Category: Medical Plan: Unable to afford Breo, will change to AirDuo. (3) Pulmonary nodule: Code(s): R91.1 - Solitary pulmonary nodule Category: Medical Plan: New 5 mm pulmonary nodule. Will repeat CT chest in 6 months Orders: Orders CT chest wo IV con 05/24/25 R91.1 - Solitary pulmonary nodule Medications: New fluticasone propion-salmeterol 113-14 mcg/actuation (AirDuo RespiClick) 1 inh inhalation BID 1 ea 6RF doxycycline monohydrate 100 mg PO BID 20 tabs 0RF Coding Level of Care Code Est Pt Level 4 (70398) Complex EM visit Add On G2211 Diagnoses Bronchiectasis J47.9 Asthma J45.909 Pulmonary nodule R91.1
== END 2024-11-21 13:15 | disposition home or self-care (01) ==
LOC: HO.HPS 12:13
PROVIDERS: PCP Physician Assistant; Visit Provider Internal Medicine Pulmonary Disease
DX: J47.9 Bronchiectasis, uncomplicated (principal); J45.909 Unspecified asthma, uncomplicated; R91.1 Solitary pulmonary nodule
CPT/HCPCS: 99214; G2211

== ENCOUNTER → 2024-11-21 12:12 | Outpatient (BNVA) | payer OTHER, SELFPAY | PROVIDERS: PCP Physician Assistant; Visit Provider Internal Medicine Pulmonary Disease | DX: Z91.09 Other allergy status, other than to drugs and biological substances (principal); J84.9 Interstitial pulmonary disease, unspecified; R06.09 Other forms of dyspnea ==

== ENCOUNTER 2025-04-02 14:23 | Outpatient (AMB) | payer OTHER, SELFPAY ==
--- NOTE | 2025-04-02 14:52 | A.OFFVIS_ITS ---
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 He is accompanied today by his daughter. She assists in providing today's history though Evan can provide much of his own history. He tells me that his step daughter whom he lives with (and who was not present today) made the appointment because she was concerned about his memory. His daughter who accompanies him today has not noticed any significant changes in his memory over the course of the last couple of years. Prydeinig himself has not noticed much of a change in his memory or physical functioning. His daughter however has noticed some slight behavioral changes with some more frequent actually impulsivity and some disinhibited behaviors. Aside from this, she has no other specific concerns for today. Memory evaluation: Onset of memory changes: Unknown Rate of progression: Unknown Cognitive: Difficulty remembering upcoming events:No Getting lost:No Difficulty keeping track of time:No Difficulty finding appropriate words:No Difficulty making decisions or problem-solving:No Functional: Difficulty writing checks, paying bills: Does not manage his own finances Difficulty driving a car:Has not driven in about 2 years Difficulty shopping alone:Shops for a few items at a time alone with no d ifficulty Difficulty performing household tasks:No Difficulty managing own medications:Has assistance with this Difficulty pursuing hobbies/leisure activities:No Change in gait:Denies gait changes or any falls. Family has noticed that he may be more cautious in the way he walks Social activities: Difficulty holding conversation:No Decreased social activity with family/friends:No changes in this Less cooperative:Yes- per his daughter Less aware of others feeling/her full: Yes Less concerned about bathing/dressing/grooming: No Behavioral: Sad, depressed:Yes, since his Anxious, worried:Yes Inpatient, fidgety:Yes Acts impulsively, disinhibited:At times yes Change appetite or weight:Reports a good appetite and no weight changes Change in sleep pattern, daytime fatigue: Reports some difficulty sleeping Hallucinations:No PFSH Medical History (Updated 04/02/25 @ 15:39 by Sahra Marquez CNP) HLD (hyperlipidemia) BPH (benign prostatic hyperplasia) Atrial fibrillation Allergic rhinitis Memory disturbance Social History (Updated 09/04/24 @ 13:33 by Francy Kate [facility]) Patient Tobacco Use Status: Never used Tobacco Review of Systems Const All systems reviewed & are unremarkable except as noted in HPI and below Neuro Denies Abnormal speech present Physical Exam Exam Exam: MMSE: Vital Signs: Last Vital Signs Pulse 84 04/02/25 14:55 Resp 16 04/02/25 14:55 BP 99/72 04/02/25 14:55 Pulse Ox 98 04/02/25 14:55 BMI result Body Mass Index 24.0 Const General: healthy appearing, comfortable and no acute distress Orientation/consciousness: oriented to person, oriented to place (Vague) and oriented to time (Vague) Eyes Pupils: Equal, round and reactive pupils present Neuro General: oriented to person, oriented to place (Vague) and oriented to time (Vague) Cranial nerves: Yes CN's II-XII intact bilaterally, Yes Equal, round and reactive pupils present and Yes Bilaterally intact EOM present Cognition (Neuro): abnormal cognition (Mildly abnormal cognition with some slight forgetfulness) Speech: No Abnormal speech present Gait exam (Neuro): Normal gait present Motor exam (neuro): 5/5 motor strength present throughout Deep tendon reflexes (DTR's): Right triceps reflex intensity grade: 1+, Left triceps reflex intensity grade: 1+, Rt Biceps (C5, C6): 1+, Left biceps reflex intensity grade: 1+, Right brachioradialis reflex intensity grade: 1+, Left brachioradialis reflex intensity grade: 1+, Right patellar reflex intensity grade: 1+, Left patellar reflex intensity grade: 1+, Right ankle reflex intensity grade: 1+ and Left ankle reflex intensity grade: 1+ Coordination: [id number] test normal Assessment & Plan Assessment & Plan (1) Memory disturbance: Code(s): R41.3 - Other amnesia Category: Medical Plan: . Plan Prydeinig is an 85-year-old male patient with a past medical history of CHF, AFib on anticoagulation, hyperlipidemia, prediabetes, and BPH who was referred to the Neurology Clinic by request of family for some noticed memory changes. Unfortunately, his stepdaughter who made today's appointment and who lives with him at home, could not be present for today's visit. His daughter who does see him regularly does assist Prydeinig in providing some of his history today. Overall, it does not seem as though there has been a major change to his cognition but rather some slow changes over time. He remains relatively independent at home with some assistance with his medications and chores around the home. He is not currently driving. He has not had any recent imaging of the brain. We will start with an MRI of the brain to evaluate for patterns of atrophy, white matter disease, or cerebral amyloid angiopathy. He is currently on anticoagulation for his atrial fibrillation. I do not see any recent TSH or B12 level which I will have completed as well. His MMSE today was 19/30 though this may be a poor representation given a slight language barrier. Plan: -Labs: TSH and B12 -MRI brain with and without contrast inslude suseptibility -Follow up after testing Orders: Orders Vitamin B12 04/02/25 R41.3 - Other amnesia TSH reflex Free T4 04/02/25 R41.3 - Other amnesia Coding Level of Care Code New Pt Level 4 (01811) Diagnoses Memory disturbance R41.3
[2025-04-02 14:55] VITALS: BP 99/72; PULSE 84; RESP 16; O2SAT 98; BMI 24.0
--- OUTSIDE RECORDS SUMMARY | 2025-04-02 15:33 | XMS_ITS ---
Author Name [facility] Organization Unknown Care Team Organization Name Specialty Phone Email Start Date End Da [facility] 02/19/2025 [facility] 05/10/2022 02/19/2024
--- OUTSIDE RECORDS SUMMARY | 2025-04-02 15:33 | XMS_ITS | Clinical Summary ---
Author Organization [address] [facility] Address [address] [place] [address] Phone Care Team Providers Care District Customs Director Name Role Phone Eva Lee Primary Care Provider + Allergies Active Allergy Reactions Criticality Noted Date Comments Penicillins Swelling 06/11/2024 Medications Eliquis 5 mg tablet TAKE 1 TABLET BY MOUTH TWICE DAILY 180 tablet 1 5 Active sacubitriL-valsa rtan (Entresto) 24-26 mg per tablet Take 1 tablet by mouth 2 (two) times a day. 180 tablet 1 5 Active cetirizine (ZyrTEC) 10 mg tabletIndication s:Allergic rhinitis, unspecified seasonality, unspecified trigger Take 1 tablet (10 mg total) by mouth 1 (one) time each day. 90 tablet 1 5 Active fluticasone propion-salmeter oL (AIRDUO RESPICLICK) 113-14 mcg/actuation aerosol powdr breath activated inhalerIndicatio ns:Moderate persistent asthma without complication Inhale 1 puff by mouth 2 (two) times a day. 1 each 2 5 Active fluticasone propionate (FLONASE) 50 mcg/actuation nasal sprayIndications :Allergic rhinitis, unspecified seasonality, unspecified trigger Administer 2 sprays into each nostril 1 (one) time each day. Shake gently. Before first use, prime pump. After use, clean tip and replace cap. 16 g 1 5 Active albuterol HFA (ProAir HFA) 90 mcg/actuation inhalerIndicatio ns:Moderate persistent asthma without complication Inhale 2 puffs by mouth every 4 (four) hours if needed for wheezing or shortness of breath. 8.5 g 2 5 026 Active fluticasone propionate (FLONASE) 50 mcg/actuation nasal spray Administer 1 spray into each nostril if needed for rhinitis. Shake gently. Before first use, prime pump. After use, clean tip and replace cap. 025 Discontin ued(Reord er) cetirizine (ZyrTEC) 10 mg tablet Take 1 tablet (10 mg total) by mouth 1 (one) time each day. 025 Discontin ued(Reord er) fluticasone propion-salmeter oL (AIRDUO RESPICLICK) 113-14 mcg/actuation aerosol powdr breath activated inhaler Inhale 1 puff by mouth 2 (two) times a day. 5 025 Discontin ued(Reord er) albuterol HFA (ProAir HFA) 90 mcg/actuation inhalerIndicatio ns:Moderate persistent asthma without complication Inhale 2 puffs by mouth every 4 (four) hours if needed for wheezing or shortness of breath. 8.5 g 5 025 Discontin ued(Reord er) Active Problems Problem Noted Date Diagnosed Date Prediabetes 03/06/2025 Chronic HFrEF (heart failure with reduced ejection fraction) ([facility] V24, [facility] V28) 09/10/2024 Assessment & Plan (10/01/2024 1:37 [...] agents. Also, the patient has an increased [id number] score and continues on anticoagulation therapy with [...] Encounters Date Type Department Care Team Description 03/06/2025 1:15 PM EDT Office Visit Internal Medicine - [place] [address] [facility] [address] [place] [address] Eva Lee PA Moderate persistent asthma without complication (Primary Dx); Allergic rhinitis, unspecified seasonality, unspecified trigger; Chronic HFrEF (heart failure with reduced ejection fraction) (CMS/HCC V24, CMS/HCC V28); Longstanding persistent atrial fibrillation (CMS/HCC V24, CMS/HCC V28); Pure hypercholesterolemia; Prediabetes; Benign prostatic hyperplasia without lower urinary tract symptoms; Memory disturbance 01/08/2025 Telephone [facility] [address] [place] [address] Evelin Schwartz NP from Last 3 Months Medical History Medical [...] care for your loved ones. For example, rn child or elderly care for an older adult? [...] Date Recorded What is your living situation? Unrecognized valu e 06/10/2024 Sex and Gender Information Value Date Recorded Sex Assigned at Not on file Legal Sex Male 5:07 AM EST Gender Identity Not on file Sexual Orientation Not on file Obstetrics History Last Filed Vital Signs Vital Sign Reading Time Taken Comments Blood Pressure 126/62 03/06/2025 1:18 PM EDT Pulse 90 03/06/2025 1:18 PM EDT Temperature 37.1 C (98.7 F) 03/06/2025 1:18 PM EDT Respiratory Rate - - Oxygen Saturation 95% 03/06/2025 1:18 PM EDT Inhaled Oxygen Concentration - - Weight 66 kg (145 lb 9.6 oz) 03/06/2025 1:18 PM EDT Height 165.1 cm (5' 5 ) 03/06/2025 1:18 PM EDT Body Mass Index 24.23 03/06/2025 1:18 PM EDT Plan of Treatment Upcoming Encounters Date Type Department Care Team (Late st Contact Info) Description 04/17/2025 1:10 PM EDT Office Visit [facility] [address] [place] [address] [address] [place] [address] Estefany Bonilla NP [address] [place] [address] [address] [place] [address] 05/13/2025 10:30 AM EST Office Visit Internal Medicine - [place] [address] [facility] [address] [place] [id number] Eva Lee, PA [address] [facility] [address] [place] [address] Health Maintenance Due Date Last Done Comments DTaP,Tdap,and Td Vaccines (1 - Tdap) 1959 Zoster Vaccines (1 of 2) 1989 RSV Immunization Adult Patie nts (1 - 1-dose 75+ series) 2014 Pneumococcal Vaccine: 50+ Ye ars (2 of 2 - PPSV23, PCV20, or PCV21) 06/01/2016 04/06/2016 Cholesterol Screening (Lipid Panel) 06/05/2022 Falls Risk Assessment 06/05/2022 Medicare Annual Wellness Visit 06/05/2022 Depression Screening 07/03/2024 Hypertension/CHF/CAD Annual BMP Blood Test 11/27/2024 11/28/2023 COVID-19 Vaccine ( - 2023-2 5 season) 2025 Influenza Vaccine (#1) 2025 Social Influencers of Health Screening 06/10/2025 [...] on patient's age to complete this topic Insurance [employer] Advance Directives Documents on File Type Date Recorded 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
== END 2025-04-02 15:41 | disposition home or self-care (01) ==
LOC: HO.HSM 14:24
PROVIDERS: PCP Physician Assistant; Visit Provider Nurse Practitioner
DX: R41.3 Other amnesia (principal)
CPT/HCPCS: 99204

== ENCOUNTER 2025-05-21 10:14 | Outpatient (AMB) | payer OTHER, SELFPAY ==
[2025-05-21 10:18] VITALS: BP 132/80; PULSE 98; O2SAT 97; BMI 23.8
--- NOTE | 2025-05-21 10:18 | A.OFFVIS_ITS ---
Vital Signs 05/21/25 10:18 Height 5 ft 5 in Weight 143 lb BMI 23.8 BP 132/80 Blood Pressure Location Rt brachial Position Sitting Pulse 98 Pulse Source Pulse Oximeter Pulse Oximetry (%) 97 Oxygen Delivery Method Room Air Intake Visit Reasons: COPD Allergies Penicillins Allergy (Severe, Verified 05/21/25 10:23) Itchiness HPI HPI COPD: Details: 85-year-old gentleman, nonsmoker, followed for bronchiectasis, asthma, and pulmonary nodules. After the last office visit patient was switched from Breo to AirDuo with improved symptom control. He was not able to complete his follow-up CT chest yet. He is complaining of significant postnasal drip. [facility] Medical History (Updated 05/21/25 @ 10:40 by Freddy Rebolledo MD) HLD (hyperlipidemia) BPH (benign prostatic hyperplasia) Atrial fibrillation Allergic rhinitis Memory disturbance Social History (Updated 09/04/24 @ 13:33 by Francy Kate [facility]) Patient Tobacco Use Status: Never used Tobacco Review of Systems Const Denies daytime sleepiness, Denies excessive sweating, Denies fatigue, Denies fever(s), Denies lethargy, Denies malaise, Denies night sweats, Denies snoring and Denies weight loss Eyes Denies blurry vision and Denies itchy eyes ENT Denies nasal congestion, Reports post nasal drip, Denies sinus pain, Denies sinus pressure and Denies other ( Thrush) Card Denies chest pain, Denies pedal edema, Denies dyspnea, Denies orthopnea and Denies paroxysmal nocturnal dyspnea Resp Denies cough, Denies hemoptysis, Denies excessive phlegm production, Denies dyspnea, Denies snoring and Denies wheezing GI Denies abdominal pain and Denies heartburn Musc Denies myalgias, Denies arthralgias and Denies joint swelling Skin/Breast Denies rash Neuro Denies memory loss and Denies seizure-like activity Psych Denies abnormal sleep pattern, Denies anxiety and Denies memory loss Endo Denies excessive sweating, Denies fatigue and Denies heat intolerance Mick/Lymph Denies easy bruising Aller/Immun Denies itchy eyes, Denies seasonal rhinorrhea and Denies wheezing Physical Exam Vital Signs: Last Vital Signs Pulse 98 05/21/25 10:18 BP 132/80 05/21/25 10:18 Pulse Ox 97 05/21/25 10:18 Oxygen Delivery Method Room Air 05/21/25 10:18 BMI result Body Mass Index 23.8 Const General: no acute distress and alert Nutritional Appearance: not obese Orientation/consciousness: Other orientation findings ( oriented) HEENT Head: Yes atraumatic Eyes General: appearance normal, both eyes and all related structures Sclerae: sclerae normal EOM: EOMs intact bilaterally Neck Neck: Yes supple Lymphatic: no lymphadenopathy noted Resp Effort & Inspection: normal respiratory effort and no use of accessory muscles Auscultation: clear to auscultation bilaterally Cardio Rate: regular rate Rhythm: regular rhythm Heart sounds: no gallops, no murmurs and no rubs Skin General skin exam: other ( warm) Extrem General: No clubbing, No cyanosis and No edema Assessment & Plan Assessment & Plan (1) Bronchiectasis: Code(s): J47.9 - Bronchiectasis, uncomplicated Category: Medical Plan: No recent exacerbations. Continue to monitor clinically. (2) Asthma: Code(s): J45.909 - Unspecified asthma, uncomplicated Category: Medical Plan: Controlled current regimen of AirDuo and albuterol MDI. Continue current regimen. (3) Pulmonary nodule: Code(s): R91.1 - Solitary pulmonary nodule Category: Medical Plan: Patient was not able to complete his follow-up CT chest. Follow-up CT chest reordered. (4) Allergic rhinitis: Code(s): J30.9 - Allergic rhinitis, unspecified Category: Medical Plan: Will try on nasal ipratropium. Orders: Orders CT chest wo IV con Today R91.1 - Solitary pulmonary nodule Medications: Refilled ipratropium bromide 2 sprays intranasal TID-QID PRN 15 mL 3RF allergy symptoms Coding Level of Care Code Est Pt Level 4 (22676) Complex EM visit Add On G2211 Diagnoses Bronchiectasis J47.9 Asthma J45.909 Pulmonary nodule R91.1 Allergic rhinitis J30.9
--- OUTSIDE RECORDS SUMMARY | 2025-05-21 19:36 | XMS_ITS | Encounter Summary ---
Author Organization [facility] Address [address] [place] [address] Care Team Providers Care Merchandise Support Associate Name Role Phone Eva Lee Primary Care Provider + Encounter Details Date Type Department Care Team (Late st Contact Info) Description 05/14/2025 Results Follow-Up Internal Medicine - [place] [address] [facility] [address] [place] [phone] Eva Lee PA [address] [place] [address] Social History Tobacco Use Types Packs/Day Years [...] Record ed Within the last 3 months, myrna bee many times did you visit the emergency [...] your loved ones. For example, child welfare worker or elderly care for an older adult? [...] on file documented as of this encounter Plan of Treatment Upcoming Encounters Date Type Department Care Team (Late st Contact Info) Description 10/16/2025 12:30 PM EDT Ancillary Procedure [facility] - [facility] [address] [facility] [address] [place] [address] 11/17/2025 10:45 AM EDT Office Visit Internal Medicine - [place] [address] [facility] [address] [place] [address] Eva Lee PA [address] [place] [address] documented as of this encounter Visit Diagnoses Not on filedocumented in this encounter Additional Health Concerns Assessment Noted Time PHQ-9 Depression Total Score: 7 05/13/20 25 10:52 AM EST documented as of this encounter Care Teams Merchandise Support Associate Relationship Specialty Start Date End Date Eva Lee PA [address] [facility] [address] [place] [address] PCP - General Internal Medicine 11/12/19 documented as of this encounter
--- OUTSIDE RECORDS SUMMARY | 2025-05-21 19:36 | XMS_ITS | Encounter Summary ---
Author Organization [facility] Address [address] [place] [address] Care Team Providers Care Parent Partner Name Role Phone Eva Lee Primary Care Provider + Encounter Details Date Type Department Care Team (Late st Contact Info) Description 04/18/2025 Results Follow-Up [facility] [address] [place] [address] Estefany Bonilla NP [address] [place] [address] [address] [place] [phone] Social History Tobacco Use Types Packs/Day Years [...] care for your loved ones. 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 [...] as of this encounter Progress Notes * Estefany Bonilla NP - 04/18/2025 7:40 AM EDT Stable lab letter please documented in this encounter Plan of Treatment Upcoming Encounters Date Type Department Care Team (Late st Contact Info) Description 10/16/2025 12:30 PM EDT Ancillary Procedure [facility] - [facility] [address] [facility] [address] [place] [address] 11/17/2025 10:45 AM EDT Office Visit Internal Medicine - [place] 175 [facility] [address] [place] [phone] Eva Lee PA [address] [place] [phone] documented as of this encounter Visit Diagnoses Not on filedocumented in this encounter Care Teams Parent Partner Relationship Specialty Start Date End Date Eva Lee PA 175 [facility] [address] [place] [address] PCP - General Internal Medicine 11/12/19 documented as of this encounter
--- OUTSIDE RECORDS SUMMARY | 2025-05-21 19:36 | XMS_ITS | Encounter Summary ---
Author Organization [facility] Address [address] [place] [address] Care Team Providers Care Test Operator Name Role Phone Eva Lee Primary Care Provider + Encounter Details Date Type Department Care Team (Late st Contact Info) Description 04/28/2025 Telephone Internal Medicine - [place] 175 [facility] [address] [place] [phone] Eva Lee PA [address] [place] [address] Social History Tobacco Use Types Packs/Day Years [...] care for your loved ones. For example, childcare center director or elderly care for an older adult? [...] as of this encounter Progress Notes * Bijal Winters MA - 05/05/2025 4:12 PM EST Tried to reach patient, no answer, left message to call back 05/05/25 Bijal Winters [place] * Kim Moon - 05/05/2025 2:54 PM EST Pt called and stated that the neurologist he was sent to is out of network and would like a call back for possible recommendations. Cb# [phone] * Tanya Grajeda - 04/28/2025 8:43 AM EDT Out of network - - [facility] MRI -was ordered by qi rich STUDIO OPERATIONS MANAGER with a neurology -sleep medicine @ [facility] Sent a fax on Monday - questions response if patient can go out of network Or should he have MRI done with [facility] Waiting on response.[facility] is requesting response today. Direct [phone] documented in this encounter Plan of Treatment Upcoming Encounters Date Type Department Care Team (Late st Contact Info) Description 10/16/2025 12:30 PM EDT Ancillary Procedure [facility] - [facility] [address] [facility] [address] [place] [address] 11/17/2025 10:45 AM EDT Office Visit Internal Medicine - [place] [address] [facility] [address] [place] [phone] Eva Lee PA [address] [facility] [phone] documented as of this encounter Visit Diagnoses Not on filedocumented in this encounter Care Teams Test Operator Relationship Specialty Start Date End Date Eva Lee PA 175 [facility] [address] [place] [address] PCP - General Internal Medicine 11/12/19 documented as of this encounter
--- OUTSIDE RECORDS SUMMARY | 2025-05-21 19:36 | XMS_ITS | Clinical Summary ---
Author Organization 175 [facility] Address [address] [place] [address] Phone Care Team Providers Care Database Marketing Manager Name Role Phone Eva Lee Primary Care Provider + Allergies Active Allergy Reactions Criticality Noted Date Comments Penicillins Swelling 06/11/2024 Medications Eliquis 5 mg tablet TAKE 1 TABLET BY MOUTH TWICE DAILY 180 tablet 1 5 Active sacubitriL-valsar durant (Entresto) 24-26 mg per tablet Take 1 tablet by mouth 2 (two) times a day. 180 tablet 1 5 Active cetirizine (ZyrTEC) 10 mg tabletIndications :Allergic rhinitis, unspecified seasonality, unspecified trigger Take 1 tablet (10 mg total) by mouth 1 (one) time each day. 90 tablet 1 5 Active fluticasone propion-salmetero L (AIRDUO RESPICLICK) 113-14 mcg/actuation aerosol powdr breath activated inhalerIndication s:Moderate persistent asthma without complication Inhale 1 puff by mouth 2 (two) times a day. 1 each 2 5 Active fluticasone propionate (FLONASE) 50 mcg/actuation nasal sprayIndications: Allergic rhinitis, unspecified seasonality, unspecified trigger Administer 2 sprays into each nostril 1 (one) time each day. Shake gently. Before first use, prime pump. After use, clean tip and replace cap. 16 g 1 5 Active albuterol HFA (ProAir HFA) 90 mcg/actuation inhalerIndication s:Moderate persistent asthma without complication Inhale 2 puffs by mouth every 4 (four) hours if needed for wheezing or shortness of breath. 8.5 g 2 5 04/01/20 26 Active dapagliflozin propanediol (FARXIGA) 10 mg tabletIndications :Chronic HFrEF (heart failure with reduced ejection fraction) (CMS/HCC V24, CMS/HCC V28) Take 1 tablet (10 mg total) by mouth 1 (one) time each day. 60 tablet 3 5 Active Active Problems Problem Noted Date Diagnosed Date Prediabetes 03/06/2025 Assessment & Plan (05/13/2025 11:05 AM EST): Chronic HFrEF (heart failure with reduced ejection fraction) (CMS/HCC V24, CMS/HCC V28) 09/10/2024 Assessment & Plan (05/13/2025 11:05 AM EST): Assessment & Plan (04/17/2025 2:37 PM EDT): The patient has a history of HFrEF. He recently underwent a nuclear stress test for ischemic evaluation, which showed a small area of apical ischemia and basal to mid inferior wall ischemia could not be occluded as well. During the nuclear stress test his EF was measured to be 49%. After the stress test Dr. Aviles spoke with the patient and the family explaining the abnormal results and recommending a left heart catheterization or coronary CTA for further evaluation. They declined undergoing further testing. He denies any chest discomfort, shortness of breath or other symptoms. He continues on Entresto. He has mild nonpitting swelling around his ankles. Will optimize GDMT further with the addition of Farxiga 10 mg daily. He will check a BMP today prior to starting the medication and a BMP 1 week after initiation. We will update an echocardiogram in 6 months. I've asked the patient to call if they develop worsening symptoms of heart failure such as increased shortness of breath, new or worsening cough, increased swelling in the legs or ankles, or weight gain of more than 2 pounds in one day or 4 pounds in one week. Orders: Basic metabolic panel; Future dapagliflozin propanediol (FARXIGA) 10 mg tablet; Take 1 tablet (10 mg total) by mouth 1 (one) time each day. Transthoracic echocardiogram (TTE) complete with PRN contrast, bubble, strain, and 3D order panel; Future perflutren lipid microsphere (DEFINITY) 1.3 mL in sodium chloride 0.9% 8.7 mL injection Basic metabolic panel; Future Assessment & Plan (10/01/2024 1:37 PM EDT): [...] V24, CMS/HCC V28) 09/10/2024 Assessment & Plan (05/13/2025 11:05 AM EST): Assessment & Plan (04/17/2025 2:37 PM EDT): He has a history of atrial fibrillation. ECG today showing atrial fibrillation with a rate of 71 bpm, 1 PVC. His rate is well-controlled. He has an elevated chads [id number] and continues on Eliquis 5 mg twice daily. We will update a BMP to reassess his creatinine as he is over the age of 79. His weight is over 60 kg. Orders: ECG 12 lead Transthoracic echocardiogram (TTE) complete with PRN contrast, bubble, strain, and 3D order panel; Future perflutren lipid microsphere (DEFINITY) 1.3 mL in sodium chloride 0.9% 8.7 mL injection Assessment & Plan (10/01/2024 1:37 PM EDT): The patient has a history of atrial fibrillation. The patient's heart rate has remained well-controlled without the use of rate control agents. Also, the patient has an increased [id number] score and continues on anticoagulation therapy with [...] (11/08/2024): DX:Allergic rhinitis Asthma Overview (11/08/2024): DX:Asthma Assessment & Plan (05/13/2025 11:05 AM EST): Atrial fibrillation (CMS/HCC V24, CMS/HCC V28) Overview (11/08/2024): DX:Atrial fibrillation (HCC); COMMENT: On anticoagulation BPH (benign prostatic hyperplasia) Overview (11/08/2024): DX:BPH (benign prostatic hyperplasia) Hyperlipidemia Overview (11/08/2024): DX:Hyperlipidemia Assessment & Plan (05/13/2025 11:05 AM EST): Encounters Date Type Department Care Team Description 05/14/2025 Results Follow-Up Internal Medicine - [place] [address] [place] [phone] Eva Lee PA 05/13/2025 11:10 AM EST Lab Draw Station - [address] [facility] [address] [place] [phone] Memory disturbance; Prediabetes; Pure hypercholesterolemia ; Chronic HFrEF (heart failure with reduced ejection fraction) (CMS/HCC V24, CMS/HCC V28); Longstanding persistent atrial fibrillation (CMS/HCC V24, CMS/HCC V28) 05/13/2025 10:30 AM EST Office Visit Internal Medicine - [place] [address] [place] [phone] Eva Lee PA Routine general medical examination at a health care facility (Primary Dx); Chronic HFrEF (heart failure with reduced ejection fraction) (CMS/HCC V24, CMS/HCC V28); Longstanding persistent atrial fibrillation (CMS/HCC V24, CMS/HCC V28); Pure hypercholesterolemia ; Prediabetes; Moderate persistent asthma without complication 04/28/2025 Telephone Internal Medicine - [place] [address] [place] [phone] Eva Lee PA 04/18/2025 Results Follow-Up [facility] Cardiology [facility] [address] [facility] [address] [place] [address] Estefany Bonilla NP 04/17/2025 1:10 PM EDT Office Visit [facility] [address] [place] [address] Estefany Bonilla, VICTORINA Chronic HFrEF (heart failure with reduced ejection fraction) (CMS/HCC V24, CMS/HCC V28) (Primary Dx); Longstanding persistent atrial fibrillation ([facility] V24, [facility] V28) 03/06/2025 1:15 PM EDT Office Visit Internal Medicine - [address] [place] [address] Eva Lee PA Moderate persistent asthma without complication (Primary Dx); Allergic rhinitis, unspecified seasonality, unspecified trigger; Chronic HFrEF (heart failure with reduced ejection fraction) ([facility] V24, [facility] V28); Longstanding persistent atrial fibrillation ([facility] V24, CMS/[facility] V28); Pure hypercholesterolemia ; Prediabetes; Benign prostatic hyperplasia without lower urinary tract symptoms; Memory disturbance from Last 3 Months Medical History Medical History Date Comments Allergic rhinitis 01/11/2018 DX:Allergic rh initis Asthma 09/06/2017 DX:Asthma Atrial fibrillation ([facility] V24, [facility] V28) 03/28/2018 DX:Atrial fibrillation ([facility]) ; COMMENT: On anticoagulation BPH (benign prostatic hyperplasia) 01/11/2018 DX:BPH (benign prostatic hyperplasia) Diverticulosis 12/30/2016 DX:Diverticulosi s Hyperlipidemia 01/11/2018 DX:Hyperlipidemi a Tubular adenoma of colon 01/11/2018 DX:Tubu lar adenoma of colon Vitamin D deficiency 05/18/2015 DX:Vitamin D deficiency Family History Relation Name Status Comments Father Mother Social History Tobacco Use Types Packs/Day Years Used Date Smoking Tobacco: Never Smokeless Tobacco: Never Tobacco Cessation:Counseling Given: Not Answered Alcohol Use Standard Drinks/Week Comments Yes 0 [...] care for your loved ones. For example, director of early childhood or elderly care for an [...] Sign Reading Time Taken Comments Blood Pressure 130/69 05/13/2025 10:45 AM EST Pulse 86 05/13/2025 10:45 AM EST Temperature 37 C (98.6 F) 05/13/2025 10:45 AM EST Respiratory Rate - - Oxygen Saturation 98% 05/13/2025 10:45 AM EST Inhaled Oxygen Concentration - - Weight 66.7 kg (147 lb) 05/13/2025 10:45 AM EST Height 165.1 cm (5' 5 ) 05/13/2025 10:45 AM EST Body Mass Index 24.46 05/13/2025 10:45 AM EST Plan of Treatment Upcoming Encounters Date Type Department Care Team (Late st Contact Info) Description 10/16/2025 12:30 PM EDT Ancillary Procedure [facility] [address] [place] [phone] 11/17/2025 10:45 AM EDT Office Visit Internal Medicine - [place] [address] [place] [phone] Eva Lee PA [address] [facility] [address] Health Maintenance Due Date Last Done Comments DTaP,Tdap,and Td Vaccines (1 - Tdap) 1958 Zoster Vaccines (1 of 2) 1989 RSV Immunization Adult Patients (1 - 1-dose 75+ series) 2014 Pneumococcal Vaccine: 50+ Years (2 of 2 - PPSV23, PCV20, or PCV21) 06/01/2016 04/06/2016 COVID-19 Vaccine ( - 2024-2 6 season) 2025 Influenza Vaccine (#1) 2025 Social Influencers of Health Screening 06/10/2025 06/10/2024 Falls Risk Assessment 05/13/2026 05/13/2025 Hypertension/CHF/CAD Annual BMP Blood Test 05/13/2026 05/13/2025, 04/17/2025, 11/28/2023 Medicare Annual Wellness Visit 05/13/2026 05/13/2025 Cholesterol Screening (Lipid Panel) 05/13/2030 05/13/2025 Depression Screening Completed 05/13/2025 HIB Vaccines Aged Out No longer eligi [...] to complete this topic RSV Immunization Patients Under 20 months Aged Out No longer eligible b ased on patient's age to complete this topic Varicella Vaccines Aged Out No longer eligible based on patient's age to complete this topic Procedures Procedure Name Priority Date/Time Associated Diagnosis Comments CBC WITH AUTO DIFFERENTIAL Routine 05/13/2025 11:09 AM EST Longstanding persistent atrial fibrillation (CMS/HCC V24, CMS/HCC V28) Memory disturbance CBC AND DIFFERENTIAL Routine 05/13/2025 11:09 AM EST Longstanding persistent atrial fibrillation (CMS/HCC V24, CMS/HCC V28) Memory disturbance COMPREHENSIVE METABOLIC PANEL Routine 05/13/2025 11:09 AM EST Chronic HFrEF (heart failure with reduced ejection fraction) (CMS/HCC V24, CMS/HCC V28) Memory disturbance THYROID STIMULATING HORMONE Routine 05/13/2025 11:09 AM EST Memory disturbance LIPID PANEL WITH REFLEX TO DIRECT LDL Routine 05/13/2025 11:09 AM EST Pure hypercholesterolemia Memory disturbance MAGNESIUM Routine 05/13/2025 11:09 AM EST Memory disturbance VITAMIN B12 Routine 05/13/2025 11:09 AM EST Memory disturbance HEMOGLOBIN A1C Routine 05/13/2025 11:09 AM EST Prediabetes Memory disturbance BORRELIA BURGDORFERI ANTIBODY Routine 05/13/2025 11:09 AM EST Memory disturbance TREPONEMA PALLIDUM ANTIBODY WITH REFLEX TO RPR AND PARTICLE AGGLUTINATION Routine 05/13/2025 11:09 AM EST Memory disturbance ECG 12-LEAD Routine 04/17/2025 2:37 PM EDT Longstanding persistent atrial fibrillation (CMS/HCC V24, CMS/HCC V28) BASIC METABOLIC PANEL Routine 04/17/2025 1:36 PM EDT Chronic HFrEF (heart failure with reduced ejection fraction) (CMS/HCC V24, CMS/HCC V28) from Last 3 Months Results * Treponema pallidum antibody with reflex to RPR and particle agglutination (05/13/2025 11:09 AM EST) Pathologist [facility] T. Pallidum Antibodies Negative Negative LAB CHEMISTRY METHOD 05/13/2025 4:16 PM EST [facility] Blood Venous blood specimen / Unknown Venipuncture / Unknown 05/13/2025 11:09 AM EST 05/13/2025 11:15 AM EST Eva CHRISTINE LAB BLOOD ORDERABLES [facility] al Result [facility] [address] [place] [address], * (ABNORMAL) Lipid panel with reflex to direct LDL (05/13/2025 11:09 AM EST) [facility] Cholesterol 242(H) 0 - 200 mg/dL LAB CHEMISTRY METHOD 05/13/2025 3:44 PM [facility] Triglycerides 178(H) 0 - 150 mg/dL LAB CHEMISTRY METHOD 05/13/2025 3:44 PM [facility] HDL 68 >=40 mg/dL LAB CHEMISTRY METHOD 05/13/2025 3:44 PM [facility] LDL Calculated 138(H) 0 - 100 mg/dL LAB CHEMISTRY METHOD 05/13/2025 3:44 PM [facility] Comment:Estimated LDL Calcul ated using equation: Total cholesterol - HDL cholesterol - (Triglycerides/5) VLDL Cholesterol Xander 35.6 mg/dL LAB CHEMISTRY METHOD 05/13/2025 3:44 PM EST [facility] Non HDL Chol. (LDL+VLDL) 174(H) <145 mg/dL LAB CHEMISTRY METHOD 05/13/2025 3:44 PM [facility] Chol/HDL Ratio 3.6 0.0 - 4.4 LAB CHEMISTRY METHOD 05/13/2025 3:44 PM [facility] Blood Venous blood specimen / Unknown Venipuncture / Unknown 05/13/2025 11:09 AM EST 05/13/2025 11:15 AM EST Eva CHRISTINE LAB BLOOD ORDERABLES Fin al Result [facility] [address] [place] [address], * (ABNORMAL) CBC auto differential (05/13/2025 11:09 AM EST) WBC 5.1 4.8 - 10.8 K/mcL LAB HEMETOLOGY METHOD 05/13/2025 2:11 PM [facility] RBC 4.60 4.50 - 5.50 M/mcL LAB HEMETOLOGY METHOD 05/13/2025 2:11 PM [facility] Hemoglobin 15.4 13.5 - 17.5 g/dL LAB HEMETOLOGY METHOD 05/13/2025 2:11 PM EST [facility] Hematocrit 47.3 42.0 - 54.0 % LAB HEMETOLOGY METHOD 05/13/2025 2:11 PM [facility] MCV 103.3(H) 79.0 - 98.0 FL LAB HEMETOLOGY METHOD 05/13/2025 2:11 PM [facility] MCH 33.6(H) 27.0 - 32.0 pcg LAB HEMETOLOGY METHOD 05/13/2025 2:11 PM [facility] MCHC 32.6 32.0 - 37.0 g/dL LAB HEMETOLOGY METHOD 05/13/2025 2:11 PM [facility] RDW 14.0 11.0 - 15.0 % LAB HEMETOLOGY METHOD 05/13/2025 2:11 PM [facility] Platelets 156 130 - 400 K/mcL LAB HEMETOLOGY METHOD 05/13/2025 2:11 PM [facility] MPV 10.5 7.0 - 11.0 FL LAB HEMETOLOGY METHOD 05/13/2025 2:11 PM [facility] NRBC 0.0 <1.0 % LAB HEMETOLOGY METHOD 05/13/2025 2:11 PM [facility] NRBC Absolute 0.00 <0.10 K/mcL LAB HEMETOLOGY METHOD 05/13/2025 2:11 PM [facility] Neutrophils Relative 53.9 % LAB HEMETOLOGY METHOD 05/13/2025 2:11 PM [facility] Lymphocytes Relative 31.9 % LAB HEMETOLOGY METHOD 05/13/2025 2:11 PM [facility] Monocytes Relative 11.0 % LAB HEMETOLOGY METHOD 05/13/2025 2:11 PM [facility] Eosinophils Relative 2.6 % LAB HEMETOLOGY METHOD 05/13/2025 2:11 PM [facility] Basophils Relative 0.4 % LAB HEMETOLOGY METHOD 05/13/2025 2:11 PM [facility] Immature Granulocytes Relative 0.2 % LAB HEMETOLOGY METHOD 05/13/2025 2:11 PM [facility] Neutrophils Absolute 2.74 1.50 - 7.00 K/mcL LAB HEMETOLOGY METHOD 05/13/2025 2:11 PM [facility] Lymphocytes Absolute 1.62 1.00 - 5.00 K/[facility] LAB HEMETOLOGY METHOD 05/13/2025 2:11 PM EST [facility] Monocytes Absolute 0.56 0.20 - 1.00 K/[facility] LAB HEMETOLOGY METHOD 05/13/2025 2:11 PM EST [facility] Eosinophils Absolute 0.13 0.00 - 0.50 K/[facility] LAB HEMETOLOGY METHOD 05/13/2025 2:11 PM EST [facility] Basophils Absolute 0.02 0.00 - 0.20 K/[facility] LAB HEMETOLOGY METHOD 05/13/2025 2:11 PM EST [facility] Immature Granulocytes Absolute 0.01 0.00 - 0.03 K/[facility] LAB HEMETOLOGY METHOD 05/13/2025 2:11 PM EST [facility] Blood Venous blood specimen / Unknown Venipuncture / Unknown 05/13/2025 11:09 AM EST 05/13/2025 11:15 AM EST Eva CHRISTINE LAB BLOOD ORDERABLES Fin al Result [facility] [address] [place] [address], * Borrelia burgdorferi antibody (05/13/2025 11:09 AM EST) [facility] Lyme Ab Negative Negative LAB CHEMISTRY METHOD 05/13/2025 3:07 PM EST [facility] Comment: No laboratory evidence of infection with B. burgdorferi (Lyme disease). Negative results may occur in patients recently infected (<=14 days) with B. burgdorferi. If recent infection is suspected, repeat testing on a new sample collected in 7- 14 days is recommended. Blood Venous blood specimen / Unknown Venipuncture / Unknown 05/13/2025 11:09 AM EST 05/13/2025 11:15 AM EST us Eva CHRISTINE LAB BLOOD ORDERABLES Fin al Result Performing Organization Address City/[facility]/ZIP Co de Phone Number [facility] [address] [place] [address], [place] [phone] * Thyroid stimulating hormone (05/13/2025 11:09 AM EST) Pathologist [facility] TSH 1.33 0.40 - 4.00 mcIU/mL LAB CHEMISTRY METHOD 05/13/2025 4:05 PM EST [facility] Blood Venous blood specimen / Unknown Venipuncture / Unknown 05/13/2025 11:09 AM EST 05/13/2025 11:15 AM EST Eva CHRISTINE LAB BLOOD ORDERABLES Fin al Result Performing Organization Address [facility]/ZIP Co de Phone Number [facility] [address] [place] [address], * Magnesium (05/13/2025 11:09 AM EST) [facility] Magnesium 2.5 1.9 - 2.6 mg/dL LAB CHEMISTRY METHOD 05/13/2025 2:45 PM EST [facility] Blood Venous blood specimen / Unknown Venipuncture / Unknown 05/13/2025 11:09 AM EST 05/13/2025 11:15 AM EST Eva CHRISTINE LAB BLOOD ORDERABLES Fin al Result Performing Organization Address City/[facility]/ZIP Co de Phone Number [facility] [address] [place] [address], [place] [phone] * Hemoglobin A1c (05/13/2025 11:09 AM EST) Pathologist [facility] Hemoglobin A1C 5.8 <6.5 % LAB CHEMISTRY METHOD 05/13/2025 7:29 PM EST [facility] Mean Bld Glu Estim. 120 mg/dL LAB CHEMISTRY METHOD 05/13/2025 7:29 PM EST [facility] Blood Venous blood specimen / Unknown Venipuncture / Unknown 05/13/2025 11:09 AM EST 05/13/2025 11:15 AM EST Eva CHRISTINE LAB BLOOD ORDERABLES Fin al Result Performing Organization Address City/[facility]/ZIP Co de Phone Number [facility] [address] [place] [address], [place] [phone] * Vitamin B12 (05/13/2025 11:09 AM EST) [facility] Vitamin B-12 318 250 - 900 pcg/mL LAB CHEMISTRY METHOD 05/13/2025 3:44 PM EST [facility] Blood Venous blood specimen / Unknown Venipuncture / Unknown 05/13/2025 11:09 AM EST 05/13/2025 11:15 AM EST Eva CHRISTINE LAB BLOOD ORDERABLES Fin al Result Performing Organization Address [facility] Co de Phone Number [facility] [address] [place] [address], [place] [phone] * (ABNORMAL) Comprehensive metabolic panel (05/13/2025 11:09 AM EST) [facility] Sodium 142 133 - 145 mmol/L LAB CHEMISTRY METHOD 05/13/2025 3:44 PM EST [facility] Potassium 4.2 3.5 - 5.5 mmol/L LAB CHEMISTRY METHOD 05/13/2025 3:44 PM EST [facility] Chloride 107 96 - 110 mmol/L LAB CHEMISTRY METHOD 05/13/2025 3:44 PM EST [facility] CO2 28 21 - 32 mmol/L LAB CHEMISTRY METHOD 05/13/2025 3:44 PM EST [facility] Anion Gap 7 3 - 11 LAB CHEMISTRY METHOD 05/13/2025 3:44 PM [facility] Glucose 85 70 - 100 mg/dL LAB CHEMISTRY METHOD 05/13/2025 3:44 PM [facility] BUN 26(H) 5 - 25 mg/dL LAB CHEMISTRY METHOD 05/13/2025 3:44 PM [facility] Creatinine 1.11 0.70 - 1.30 mg/dL LAB CHEMISTRY METHOD 05/13/2025 3:44 PM [facility] eGFR 65 >=60 mL/min/1. 73m2 LAB CHEMISTRY METHOD 05/13/2025 3:44 PM [facility] Comment:Calculation based on the Chronic Kidney Disease Epidemiology Collaboration (CKD-EPI) equation refit without adjustment for race. BUN/Creatinine Ratio 23.4 LAB CHEMISTRY METHOD 05/13/2025 3:44 PM [facility] Calcium 8.8 8.5 - 10.5 mg/dL LAB CHEMISTRY METHOD 05/13/2025 3:44 PM [facility] AST (SGOT) 21 10 - 42 unit/L LAB CHEMISTRY METHOD 05/13/2025 3:44 PM [facility] ALT (SGPT) 23 10 - 60 unit/L LAB CHEMISTRY METHOD 05/13/2025 3:44 PM [facility] Alkaline Phosphatase 64 42 - 121 unit/L LAB CHEMISTRY METHOD 05/13/2025 3:44 PM [facility] Total Protein 6.7 6.0 - 8.0 g/dL LAB CHEMISTRY METHOD 05/13/2025 3:44 PM [facility] Albumin 3.6 3.2 - 5.0 g/dL LAB CHEMISTRY METHOD 05/13/2025 3:44 PM [facility] Total Bilirubin 0.5 0.0 - 1.4 mg/dL LAB CHEMISTRY METHOD 05/13/2025 3:44 PM [facility] Blood Venous blood specimen / Unknown Venipuncture / Unknown 05/13/2025 11:09 AM EST 05/13/2025 11:15 AM EST Eva CHRISTINE LAB BLOOD ORDERABLES Fin al Result Performing Organization Address City/[facility]/ZIP Co de Phone Number [facility] [address] [place] [address], [place] [phone] * ECG 12 lead (04/17/2025 2:37 PM EDT) Ventricular Rate ECG 71 BPM [facility] Atrial Rate 83 BPM [facility] QRS Duration 86 ms [facility] Q-T Interval 378 ms [facility] QTc 410 ms GEM[facility] R [place] 92 degrees GEMUSE T [place] -33 degrees G[facility] ECG Interpretation Atrial fibrillation with premature ventricular or aberrantly conducted complexes Rightward axis T wave abnormality, consider inferior ischemia Abnormal ECG When compared with ECG of 10-SEP-2024 14:47, T wave inversion now evident in Inferior leads Confirmed by IRENA REYNA ([id number]) on 04/19/2025 6:06:20 PM [facility] 04/17/2025 12:5 8 PM EDT 04/19/2025 6:06 PM EDT Estefany Bonilla LEAN COACH ECG ORDERABLES Edited Result - Final [facility] * (ABNORMAL) Basic metabolic panel (04/17/2025 1:36 PM EDT) Glucose 104(H) 70 - 99 mg/dL [facility] Blood Urea Nitrogen (BUN) 24 8 - 27 mg/dL [facility] Creatinine 1.00 0.76 - 1.27 mg/dL [facility] 1 eGFR 73 >59 mL/min/1.7 3 [facility] 1 BUN/Creatinine Ratio 24 10 - 24 [facility] 1 Sodium 140 134 - 144 mmol/L [facility] 1 Potassium 4.4 3.5 - 5.2 mmol/L [facility] 1 Chloride 103 96 - 106 mmol/L [facility] 1 Carbon Dioxide 25 20 - 29 mmol/L [facility] 1 Calcium 9.1 8.6 - 10.2 mg/dL [facility] 1 Blood Venous blood specimen / Unknown 04/17/2025 1:36 PM EDT 04/17/2025 Narrative [facility] 1 - 04/18/2025 7:06 AM EDT Performed at: 01 - [facility] [address] [id number] Child & Adolescent Psychiatrist: Hayley Eng MD, Phone: [phone] us Estefany Bonilla LEAN COACH LAB BLOOD ORDERABLES Final Res ult [facility] 1 from Last 3 Months Insurance [employer] Advance Directives Documents on File Type Date Recorded Patient Mobile Paramedical Examiner Expl anation DNR (Do Not Resuscitate) 05/07/2024 2:54 PM [facility] Care Teams Database Marketing Manager Relationship Specialty Start Date End Date Eva Lee PA [address] [place] [id number] PCP - General Internal Medicine 11/12/19
== END 2025-05-21 10:39 | disposition home or self-care (01) ==
LOC: HO.HPS 10:14
PROVIDERS: PCP Physician Assistant; Visit Provider Internal Medicine Pulmonary Disease
DX: J47.9 Bronchiectasis, uncomplicated (principal); J45.909 Unspecified asthma, uncomplicated; R91.1 Solitary pulmonary nodule; J30.9 Allergic rhinitis, unspecified
CPT/HCPCS: 99214